=== PATIENT | female | born 2000 | race Hispanic/Latino ===

== ENCOUNTER 2020-03-10 09:59 | Outpatient (CLI) | payer BC, SELFPAY ==
--- NOTE | ~2020-03-10 | US_ITS ---
EXAMINATION: US pelvic complete w TV DATE: 03/10/2020 10:45 INDICATION: Irregular menstruation. Cramping. Comparison:No prior studies for comparison. TECHNIQUE: Multiple transabdominal and endovaginal sonographic images of the pelvis performed. FINDINGS: The uterus measures 7.4 x 6.4 x 4.2 cm. The endometrial complex measures 5.5 mm. Trace flui d in the endometrium. Uterus is retroverted. The right ovary measures 3.2 x 2 x 2.1 cm and the left ovary measures 3.3 x 2.5 x 2.8 cm. There is a 2.7 cm left ovarian cyst. There are small follicles in each ovary. There is no free fluid in the pelvis. There are no abnormal masses seen on either side. IMPRESSION: 1. 2.7 cm left ovarian cyst. Reviewed, dictated and finalized at location A.
== END 2020-03-10 10:00 | disposition home or self-care (01) ==
PROVIDERS: Visit Provider Obstetrics & Gynecology
DX: R10.2 Pelvic and perineal pain (principal); N83.202 Unspecified ovarian cyst, left side
CPT/HCPCS: 76830; 76856

== ENCOUNTER 2024-08-21 17:17 | Inpatient (IN) | payer OTHER, SELFPAY ==
[2024-08-21] VITALS (10 sets, daily range): BP systolic 105–130; BP diastolic 56–76; PULSE 69–82; RESP 14–16; TEMP 36.3–36.7; O2SAT 97–100; BMI 36.0
--- NOTE | ~2024-08-21 | US_ITS ---
EXAMINATION: US venous doppler [facility] DATE: 08/26/2024 14:29 INDICATION: new onset swelling and pain . TECHNIQUE: Grayscale ultrasound images without and with compression and Doppler ultrasound images of the left upper extremity veins were obtained. COMPARISON: None. FINDINGS: The left cephalic vein has mildly dilated and noncompressible. The visualized portions of the left in ternal jugular vein, subclavian vein, axillary vein, brachial veins, basilic vein, radial vein, and u lnar vein are patent. IMPRESSION: Acute venous thrombosis involving the left cephalic vein. Reviewed, dictated and finalized at location K. EROOM ATTENDANT
--- NOTE | ~2024-08-21 | CT_ITS ---
CLINICAL INDICATION: Abdominal pain blood in stool COMPARISON: None TECHNIQUE: Multiple contiguous axial images of the abdomen and pelvis were performed following the ad ministration of with 100 mL Omnipaque-350 intravenous contrast The dose-length product (DLP) was 846.07 mGy-cm. Automated exposure control and iterative reconstruction technique were employed. FINDINGS/OBSERVATIONS: Visualized lower thorax: Left basilar atelectasis. The remainder of the bilateral lung bases are clear. The heart is of normal size, without pericardial effusion. Liver: The liver is enlarged measuring 20 cm in longitudinal dimension. The liver enhances homogeneously and demonstrates diffuse fatty infiltration.. Gallbladder and biliary system: The gallbladder is only minimally distended, and otherwise unremarkable. Pancreas: The pancreas enhances homogeneously without ductal dilatation. Spleen: The spleen enhances homogeneously and is within the upper limits of normal for size measuring 12 cm i n longitudinal dimension. Kidneys: The bilateral kidneys enhance symmetrically without hydronephrosis or renal calculi. Adrenal glands: Unremarkable. Gastrointestinal tract: Mural thickening with edema and surrounding inflammatory changes identified within the entirety of th e colon, findings consistent with a pancolitis. Appendix: The appendix is of normal caliber (axial series, image 129) Vasculature: Unremarkable. Lymph nodes: No pathologically enlarged or morphologically suspicious lymph nodes within the retroperitoneum or at the root of the mesentery. Pelvic structures: The bladder is distended, and otherwise unremarkable. The uterus is retroverted and retroflexed. Body wall and musculoskeletal: Small fat-containing umbilical hernia. No significant degenerative disease within the lower thoracic or lumbosacral spine. IMPRESSION: Findings consistent with a pancolitis, as detailed above. Fatty infiltration of an enlarged liver. Left basilar atelectasis. Reviewed, dictated and finalized at location A. NTORY CLERK
--- NOTE | ~2024-08-21 | XR_ITS ---
Portable chest x-ray Comparison: None Clinical History: Leukocytosis Findings: There is probable bibasilar scarring or atelectasis, less likely pneumonia. Cardiomediast inal silhouette is stable. Bones and soft tissues are unremarkable. Impression: Probable bibasilar scarring or atelectasis, less likely pneumonia. Reviewed, dictated and finalized at [facility]. N SERVICES SUPERVISOR Impression: Probable bibasilar scarring or atelectasis, less likely pneumonia.
[2024-08-21 18:04] LABS: Basophils Percent Auto 0.2 % (0.2-1.2); Eosinophils Absolute Auto 0.1 K/mm3 (0-0.3); Eosinophils Percent Auto 0.3 % (0-4.4); Hematocrit 37.8 % (37.0-47.0); Hemoglobin 12.7 g/dL (12.0-15.0); Immature Granulocyte Absolute 0.09 K/mm3 (0.00-0.031); Immature Granulocyte Percent A 0.5 % (0-0.5); Lymphocytes Absolute Auto 1.82 K/mm3 (0.9-3.2); Lymphocytes Percent Auto 10.9 % (18.3-44.2); Mean Corpuscular HGB Conc 33.6 g/dl (32-36); Mean Corpuscular Hemoglobin 28.3 pg (26-34); Mean Corpuscular Volume 84.4 fl (80-100); Mean Platelet Volume 9.2 fl (7.4-10.4); Monocytes Absolute Auto 0.6 K/mm3 (0.1-0.6); Monocytes Percent Auto 3.8 % (2.6-8.5); Neutrophils Absolute Auto 14.1 K/mm3 (1.3-6.7); Neutrophils Percent Auto 84.3 % (45.5-73.1); Platelet Count Result 316 k/mm3 (150-375); Red Blood Count 4.48 M/mm3 (4.2-5.4); Red Cell Distribution Width 14.1 % (11.5-14.5); White Blood Count 16.7 K/mm3 (4.5-10.0)
[2024-08-21 18:16] LABS: Alanine Aminotransferase 55 U/L (6-35); Albumin Level 4.3 g/dL (3.5-5.1); Alkaline Phosphatase 73 U/L (38-126); Anion Gap 9 mmol/L (4-12); Aspartate Amino Transferase 53 U/L (14-36); Bilirubin,Total 0.5 mg/dL (0.2-1.3); Blood Urea Nitrogen 5 mg/dL (7-17); Calcium 8.7 mg/dL (8.4-10.2); Carbon Dioxide 24 mmol/L (22-30); Chloride 102 mmol/L (98-107); Estimated CRCL calculation 124 ml/min; Estimated Glomerular Filt Rate > 60; Glucose 130 mg/dL (65-110); Lipase 46 U/L (23-300); Potassium 3.8 mmol/L (3.4-5.0); Sodium 135 mmol/L (137-145)
[2024-08-21 18:29] LABS: BEDSIDEPREGUCG Negative (Negative)
--- NOTE | 2024-08-21 18:29 | ED_ITS ---
HPI - Abdominal Pain General Chief Complaint: Abdominal Pain Stated Complaint: abd pain Time Seen by Provider: 08/21/24 17:38 History of Present Illness HPI narrative: 24-year-old female with history of NAFLD, anxiety, depression and gastroparesis presents emergency department family at bedside for periumbilical abdominal pain for 2 days and 3 episodes of bloody diarrhea today. Patient states she has been using a heating pad and taking ibuprofen with some relief in her abdominal pain. States she has never had symptoms like this before. Denies history of hemorrhoids. Reports nausea but denies vomiting or fever. LMP 1 week ago and normal. No prior abdominal surgeries. Related Data Home Medications Medication Instructions Recorded Confirmed ondansetron HCl 4 mg tablet 4 mg PO Q8H 01/31/20 Allergies Allergy/AdvReac Type Severity Reaction Status Date / Time No Known Allergies Allergy Verified 08/21/24 17:21 Review of Systems Review of Systems: All systems reviewed & are unremarkable except as noted in HPI and below PMFSH Past Medical History Medical History (Updated 08/21/24 @ 22:29 by Mitzi Dickerson PA-C) Anxiety Depression Gastroparesis Urinary frequency Vaginal discharge Surgical History Surgical History History of tonsillectomy Social History Social History Smoking status: Former smoker Tobacco type: e-cigarettes/vaping Smoking end date: 10/16/19 Alcohol intake: never Substance use: current Substance use type: marijuana Exam Narrative: GENERAL: Well-appearing, well-nourished, and in no acute distress. HEAD: Normocephalic, atraumatic. EYES: EOMI. ENT: Nares clear, no rhinorrhea or epistaxis. Mucous membranes moist. NECK: Supple. CHEST: Clear to auscultation. No respiratory distress. HEART: Regular rate and rhythm. No murmur heard. Normal peripheral pulses. ABDOMEN: Normoactive bowel sounds, abdomen soft. Tenderness to the periumbilic al region to palpation. No rebound, guarding or rigidity. No CVA tenderness. Rectal exam chaperoned by Jeannette hamm: No external hemorrhoids or anal fissures. Bright red blood is noted on glove after rectal exam with no palpable internal hemorrhoids. Hemoccult is positive. EXTREMITIES: Normal range of motion. No edema. SKIN: Warm, dry, no rash. NEURO: No focal deficits. Alert and oriented x3 Course Vital Signs Vital signs: Vital Signs Temperature 98.1 F 08/21/24 17:19 Pulse Rate 82 08/21/24 17:19 Respiratory Rate 16 08/21/24 17:19 Blood Pressure 130/73 08/21/24 17:19 Pulse Oximetry 100 08/21/24 17:19 Oxygen Delivery Room Air 08/21/24 17:19 Temperature 98.1 F 08/21/24 17:19 Pulse Rate 72 08/21/24 21:01 Respiratory Rate 16 08/21/24 19:01 Blood Pressure 128/72 08/21/24 21:01 Pulse Oximetry 100 08/21/24 21:01 Oxygen Delivery Room Air 08/21/24 17:19 MDM - Abdominal Pain MDM Narrative Medical decision making narrative: 24-year-old female presents emergency department for periumbilical abdominal pain for 2 days and episode of bloody diarrhea today. Triage vitals are stable. Exam significant for the above. Notably tenderness to the periumbilical region of the abdomen with bright red blood noticed on digital rectal exam. CBC reveals leukocytosis of 16.7, no bandemia. Chemistries show chronic elevations in AST and ALT. Lactic acid mildly elevated 2.2, fluids ongoing. UA is unremarkable. is negative. CT abdomen pelvis shows pancolitis consistent with patient's presentation. Stool cultures and C diff testing pending. Patient updated on workup. She is and persistent pains was given a dose of IV morphine. She does know that she was recently exposed to C diff at her work (she works at [employer] Denies recent surgeries or hospitalizations, denies antibiotic use or travel. Suspect C diff is the source of her symptoms. Shared decision making regarding disposition. She notes that she did have another episode of bloody stools in the ED. She is requesting to stay in the ED for pain control and IV fluids. Discussed with Dr. Davenport who agrees to admission. Pt started on Dificid pending C. diff results. Lab Data 08/21/24 17:55 08/21/24 17:55 Labs: Lab Results 11/11/24 11/11/24 11/11/24 Range/Units 17:55 18:25 18:27 WBC 16.7 H (4.5-10.0) K/mm3 RBC 4.48 (4.2-5.4) M/mm3 Hgb 12.7 (12.0-15.0) g/dL Hct 37.8 (37.0-47.0) % MCV 84.4 (80-100) fl MCH 28.3 (26-34) pg MCHC 33.6 (32-36) g/dl RDW 14.1 (11.5-14.5) % Plt Count 316 (150-375) k/mm3 MPV 9.2 (7.4-10.4) fl Immature Gran % (Auto) 0.5 (0-0.5) % Neut % (Auto) 84.3 H (45.5-73.1) % Lymph % (Auto) 10.9 L (18.3-44.2) % [place] % (Auto) 3.8 (2.6-8.5) % Eos % (Auto) 0.3 (0-4.4) % Baso % (Auto) 0.2 (0.2-1.2) % Lymph # (Auto) 1.82 (0.9-3.2) K/mm3 [place] # (Auto) 0.6 (0.1-0.6) K/mm3 Eos # (Auto) 0.1 (0-0.3) K/mm3 Baso # (Auto) 0.0 (0.0-0.1) K/mm3 Abs Immat Gran (auto) 0.09 H (0.00-0.031) K/mm3 Absolute Neuts (auto) 14.1 H (1.3-6.7) K/mm3 Absolute Nucleated RBC 0.000 (0.0-0.012) K/mm3 Nucleated RBC % 0.0 (0.0-0.2) % Sodium 135 L (137-145) mmol/L Potassium 3.8 (3.4-5.0) mmol/L Chloride 102 (98-107) mmol/L Carbon Dioxide 24 (22-30) mmol/L Anion Gap 9 (4-12) mmol/L BUN 5 L (7-17) mg/dL Creatinine 0.60 L (0.7-1.0) mg/dL Estim Creat Clear Calc 124 ml/min Estimated GFR > 60 (59 - ) Glucose 130 H (65-110) mg/dL Lactic Acid (0.7-2.0) mmol/L Calcium 8.7 (8.4-10.2) mg/dL Total Bilirubin 0.5 (0.2-1.3) mg/dL AST 53 H (14-36) U/L ALT 55 H (6-35) U/L Alkaline Phosphatase 73 (38-126) U/L Total Protein 8.0 (6.3-8.2) g/dL Albumin 4.3 (3.5-5.1) g/dL Lipase 46 (23-300) U/L Urine Color Yellow (Yellow) Urine Appearance Clear (Clear) Urine pH 6.0 (5.0-9.0) Ur Specific [place] 1.018 (1.001-1.035) Urine Protein Negative (Negative) mg/dL Urine Glucose (UA) Negative (Negative) mg/dL Urine Ketones Negative (Negative) mg/dL Ur Blood (Man) Negative (Negative) Urine Nitrate Negative (Negative) Urine Bilirubin Negative (Negative) Urine Urobilinogen 0.2 (<2.0) mg/dL Leukocyte Esterase Rfl Negative (Negative) BENIGNO/UL POC Urine HCG, Qual Negative (Negative) 08/21/24 Range/Units 18:46 WBC (4.5-10.0) K/mm3 RBC (4.2-5.4) M/mm3 Hgb (12.0-15.0) g/dL Hct (37.0-47.0) % MCV (80-100) fl MCH (26-34) pg MCHC (32-36) g/dl RDW (11.5-14.5) % Plt Count (150-375) k/mm3 MPV (7.4-10.4) fl Immature Gran % (Auto) (0-0.5) % Neut % (Auto) (45.5-73.1) % Lymph % (Auto) (18.3-44.2) % [place] % (Auto) (2.6-8.5) % Eos % (Auto) (0-4.4) % Baso % (Auto) (0.2-1.2) % Lymph # (Auto) (0.9-3.2) K/mm3 [place] # (Auto) (0.1-0.6) K/mm3 Eos # (Auto) (0-0.3) K/mm3 Baso # (Auto) (0.0-0.1) K/mm3 Abs Immat Gran (auto) (0.00-0.031) K/mm3 Absolute Neuts (auto) (1.3-6.7) K/mm3 Absolute Nucleated RBC (0.0-0.012) K/mm3 Nucleated RBC % (0.0-0.2) % Sodium (137-145) mmol/L Potassium (3.4-5.0) mmol/L Chloride (98-107) mmol/L Carbon Dioxide (22-30) mmol/L Anion Gap (4-12) mmol/L BUN (7-17) mg/dL Creatinine (0.7-1.0) mg/dL Estim Creat Clear Calc ml/min Estimated GFR (59 - ) Glucose (65-110) mg/dL Lactic Acid 2.2 H (0.7-2.0) mmol/L Calcium (8.4-10.2) mg/dL Total Bilirubin (0.2-1.3) mg/dL AST (14-36) U/L ALT (6-35) U/L Alkaline Phosphatase (38-126) U/L Total Protein (6.3-8.2) g/dL Albumin (3.5-5.1) g/dL Lipase (23-300) U/L Urine Color (Yellow) Urine Appearance (Clear) Urine pH (5.0-9.0) Ur Specific [place] (1.001-1.035) Urine Protein (Negative) mg/dL Urine Glucose (UA) (Negative) mg/dL Urine Ketones (Negative) mg/dL Ur Blood (Man) (Negative) Urine Nitrate (Negative) Urine Bilirubin (Negative) Urine Urobilinogen (<2.0) mg/dL Leukocyte Esterase Rfl (Negative) BENIGNO/UL POC Urine HCG, Qual (Negative) Imaging Data Radiologist's impression: ITS Impressions Abdomen/Pelvis CT 08/21/24 21:30 IMPRESSION: Findings consistent with a pancolitis, as detailed above. Fatty infiltration of an enlarged liver. Left basilar atelectasis. Discharge Plan Discharge Clinical Impression: Pancolitis, Hematochezia Patient Disposition: Still a Patient Condition: Stable Instructions: Antibiotic Form Prescriptions: No Action ondansetron HCl 4 mg tablet 4 mg PO Q8H cyclobenzaprine 10 mg tablet 10 mg PO Q12H PRN (Reason: muscle spasm) Qty: 10 0RF metronidazole [Flagyl] 500 mg tablet 500 mg PO Q12H Qty: 14 0RF Follow-up/Referrals: UNKNOWN,DOCTOR [Primary Care Provider] -
[2024-08-21 18:31] LABS: Add Urine Microscopic? NO; Appearance Urine Clear (Clear); Bilirubin Urine Negative (Negative); Blood Urine Negative (Negative); Color Urine Yellow (Yellow); Glucose Urine UA Negative (Negative); Ketones Urine Negative (Negative); Leukocyte Esterase Ur Negative LEU/UL (Negative); Nitrate Urine Negative (Negative); Protein Urine Negative (Negative); Specific Grav Ur 1.018 (1.001-1.035); Urobilinogen Urine 0.2 mg/dL (<2.0)
[2024-08-21] MEDS: SODIUM CHLORIDE 0.9% IV 1,000 ML 999 ML IV CONT ×2 (18:48→22:44)
[2024-08-21 19:13] LABS: Lactic Acid Reflex 2.2 mmol/L (0.7-2.0)
[2024-08-21 21:52] LABS: Reflex Lactic Acid Yes or No Add Lactic
[2024-08-21] MEDS: MORPHINE SULFATE (*CRX) 4 MG/ML INJ IV PUSH (22:12)
[2024-08-21 22:35] LABS: Lactic Acid 1.4 mmol/L (0.7-2.0)
[2024-08-21 22:47] LABS: Hematocrit 34.7 % (37.0-47.0)
[2024-08-21] MEDS: FIDAXOMICIN 200 MG TABLET PO (22:48)
--- NOTE | 2024-08-21 23:30 | ADMGEN ---
This patient, Aida Butts, was admitted to [facility] Surg Room 331-02. Patient/family oriented to hospital policies and general routines including ID bracelet, bed and alarms, visiting hours, pain management, procedures, bathroom and other care routines, personal items, smoking policy, room service/diet, and visiting hours. Information on how to activate the Rapid Response Team has been discussed. Patient/Family are encouraged to report perceived risks to care and to ask questions if they do not understand what they are told or what they should do.
--- NOTE | 2024-08-22 00:07 | P.HP_ITS ---
H&P: HPI History of Present Illness Date/Time: 08/22/24 00:07 Chief Complaint: Bloody diarrhea for 2 days Narrative: 24-year-old female with past medical history of obesity, Rios, anxiety, depression and gastroparesis who presented to the ER with 2 days of abdominal pain and bloody stools. She reports that she has had 3 days of abdominal pain and diarrhea. She initially thought her symptoms were due to her gastroparesis. Her usual gastroparesis symptoms usually involve crampy abdominal pain, nausea followed by looser her mushy stools. She was diagnosed with gastroparesis in 2019 when she had an EGD that demonstrated retained gastric contents when she had been fasting for close to 24 hours. She reports that she has never had a colonoscopy. She is followed at [facility] by Gastroenterology for her RIOS and gastroparesis. She reported that her symptoms were accompanied by generalized body aches. She has been afebrile. She went from having mushy loose stools with crampy abdominal pain is moderate to severe in intensity and then transition to having frankly watery/mucousy stools. She reports that she was so weak that her fiance had to help her out of bed and she was having associated lightheaded symptoms. She was having some nausea and did have a couple of episodes of emesis. She denies any hematemesis or coffee-ground emesis. She went to [facility] ER was told she likely had a viral illness without having any evaluation. When she was [place] to leave sloughed ER she did notice some blood in her stool so she left that ER and decided to come to our facility. She denies any bowel incontinence. At our facility labs demonstrated mild leukocytosis, lactic acidosis, chronic stable transaminitis and a CT scan was performed which demonstrated amin colitis. The patient does note that she did the intake for patient had chestnut about 4 weeks ago that was found later to have C diff colitis. She denies any recent antibiotic exposures, travel, undercooked meat or contaminated water exposure. Patient was able to produce a stool specimen that was tested for C diff and was found to be negative. Review of Systems Review of Systems: 12 systems were reviewed with pertinent positives and negatives per HPI. Except as documented in the HPI, all other systems were reviewed and are negative. [facility] Past Medical History Medical History (Updated 08/22/24 @ 03:34 by Priscila Davenport DO) Anxiety Depression Gastroparesis Nonalcoholic steatohepatitis (RIOS) Chronic transaminitis; [facility] Urinary frequency Vaginal discharge Surgical History Surgical History History of tonsillectomy Family History Family History (Updated 08/22/24 @ 03:33 by Priscila Davenport DO) Other Adopted Unknown family medical history Social History Social History (Updated 08/22/24 @ 03:36 by Priscila Davenport DO) Social History: She lives at home with her fiance and mother. She works at [employer]. She denies any alcohol use. She used to smoke marijuana frequently but stopped in 2022. Code status: Full code Surrogate decision maker: Mother Smoking status: Former smoker Tobacco type: e-cigarettes/vaping Smoking end date: 10/16/19 Alcohol intake: never Substance use: former Substance use type: marijuana Do You Feel Safe in your Home?: Yes Lack of Transportation: No Lack of Food: Never True Current Housing: I Have Housing Concerned About Future Housing: No Difficulty Paying Gas/Electric Bills: No Difficulty Paying for Meds: No Currently Unemployed: No Education: Bachelor's Degree Difficulty w/ Childcare or Family Care: No Spiritual care concerns: No Meds Home Medications and Allergies Home Medications Medication Instructions Recorded Confirmed Type cholecalciferol (vitamin D3) 50 50 mcg PO DAILY 08/21/24 08/21/24 History mcg (2,000 unit) capsule (Vitamin D3) vitamin K2 45 mcg capsule 45 mcg PO DAILY 08/21/24 08/21/24 History Allergies Allergy/AdvReac Type Severity Reaction Status Date / Time No Known Allergies Allergy Verified 08/21/24 17:21 Vital Signs Vital Signs - 24 hr 08/21/24 17:19 08/21/24 18:25 08/21/24 18:31 Temperature 98.1 F Pulse Rate 82 Respiratory Rate 16 Blood Pressure 130/73 120/75 105/64 Pulse Oximetry 100 98 Oxygen Delivery Room Air 08/21/24 19:01 08/21/24 19:41 08/21/24 20:34 Temperature Pulse Rate 69 Respiratory Rate 16 Blood Pressure 119/76 123/75 111/62 Pulse Oximetry 99 99 98 Oxygen Delivery 08/21/24 21:01 08/21/24 23:00 08/21/24 23:09 Temperature Pulse Rate 72 81 81 Respiratory Rate 14 14 Blood Pressure 128/72 109/63 109/63 Pulse Oximetry 100 99 99 Oxygen Delivery Exam Narrative: Weight 89.4 kg BMI 36 Const: Other: Obese, no acute distress, appears stated age HENMT: Other: Mucous membranes are tacky, no oral pharyngeal erythema Eyes: Other: Pupils are equal and reactive, no scleral icterus Neck: Other: Large neck circumference, supple Resp: Other: Clear to auscultation bilaterally anterior trujillo, no increased work of br eathing Cardio: Other: Regular rate, regular rhythm, 2+ bilateral radial pedal pulses GI: Other: Normoactive bowel sounds, soft, no organomegaly Skin: Other: No jaundice, no pallor Neuro: Other: Alert oriented, speech is clear, no facial asymmetry, no localizing neurologic deficits noted during the course of conversation Extrem: Other: No clubbing, cyanosis or edema Psych: Other: Appropriate mood and affect, pleasant and cooperative, judgment and insight intact H&P: Results Labs Labs: Laboratory Tests 08/21/24 22:43 08/21/24 17:55 08/21/24 08/21/24 08/21/24 17:55 18:25 18:27 WBC 16.7 H RBC 4.48 Hgb 12.7 Hct 37.8 MCV 84.4 MCH 28.3 MCHC 33.6 RDW 14.1 Plt Count 316 MPV 9.2 Immature Gran % (Auto) 0.5 Neut % (Auto) 84.3 H Lymph % (Auto) 10.9 L Bartholomew % (Auto) 3.8 Eos % (Auto) 0.3 Baso % (Auto) 0.2 Lymph # (Auto) 1.82 Bartholomew # (Auto) 0.6 Eos # (Auto) 0.1 Baso # (Auto) 0.0 Abs Immat Gran (auto) 0.09 H Absolute Neuts (auto) 14.1 H Absolute Nucleated RBC 0.000 Nucleated RBC % 0.0 Sodium 135 L Potassium 3.8 Chloride 102 Carbon Dioxide 24 Anion Gap 9 BUN 5 L Creatinine 0.60 L Estim Creat Clear Calc 124 Estimated GFR > 60 Glucose 130 H Lactic Acid Calcium 8.7 Total Bilirubin 0.5 AST 53 H ALT 55 H Alkaline Phosphatase 73 Total Protein 8.0 Albumin 4.3 Lipase 46 Urine Color Yellow Urine Appearance Clear Urine pH 6.0 Ur Specific [place] 1.018 Urine Protein Negative Urine Glucose (UA) Negative Urine Ketones Negative Ur Blood (Man) Negative Urine Nitrate Negative Urine Bilirubin Negative Urine Urobilinogen 0.2 Leukocyte Esterase Rfl Negative POC Urine HCG, Qual Negative C. difficile (PCR) 08/21/24 08/21/24 08/21/24 18:46 22:18 22:43 WBC RBC Hgb 12.0 Hct 34.7 L MCV MCH MCHC RDW Plt Count MPV Immature Gran % (Auto) Neut % (Auto) Lymph % (Auto) Bartholomew % (Auto) Eos % (Auto) Baso % (Auto) Lymph # (Auto) Bartholomew # (Auto) Eos # (Auto) Baso # (Auto) Abs Immat Gran (auto) Absolute Neuts (auto) Absolute Nucleated RBC Nucleated RBC % Sodium Potassium Chloride Carbon Dioxide Anion Gap BUN Creatinine Estim Creat Clear Calc Estimated GFR Glucose Lactic Acid 2.2 H 1.4 Calcium Total Bilirubin AST ALT Alkaline Phosphatase Total Protein Albumin Lipase Urine Color Urine Appearance Urine pH Ur Specific [place] Urine Protein Urine Glucose (UA) Urine Ketones Ur Blood (Man) Urine Nitrate Urine Bilirubin Urine Urobilinogen Leukocyte Esterase Rfl POC Urine HCG, Qual C. difficile (PCR) 08/22/24 01:09 WBC RBC Hgb Hct MCV MCH MCHC RDW Plt Count MPV Immature Gran % (Auto) Neut % (Auto) Lymph % (Auto) Bartholomew % (Auto) Eos % (Auto) Baso % (Auto) Lymph # (Auto) Bartholomew # (Auto) Eos # (Auto) Baso # (Auto) Abs Immat Gran (auto) Absolute Neuts (auto) Absolute Nucleated RBC Nucleated RBC % Sodium Potassium Chloride Carbon Dioxide Anion Gap BUN Creatinine Estim Creat Clear Calc Estimated GFR Glucose Lactic Acid Calcium Total Bilirubin AST ALT Alkaline Phosphatase Total Protein Albumin Lipase Urine Color Urine Appearance Urine pH Ur Specific [place] Urine Protein Urine Glucose (UA) Urine Ketones Ur Blood (Man) Urine Nitrate Urine Bilirubin Urine Urobilinogen Leukocyte Esterase Rfl POC Urine HCG, Qual C. difficile (PCR) Negative Impressions Abdomen/Pelvis CT 08/21/24 21:30 IMPRESSION: Findings consistent with a pancolitis, as detailed above. Fatty infiltration of an enlarged liver. Left basilar atelectasis. Assessment and Plan Assessment and plan (1) Pancolitis: Code(s): K51.00 - Ulcerative (chronic) pancolitis without complications Status: Acute (2) Hematochezia: Code(s): K92.1 - Melena Status: Acute (3) Acute hyponatremia: Code(s): E87.1 - Hypo-osmolality and hyponatremia Status: Acute Plan Patient has amin colitis. Presumed infectious in origin. Initial C diff PCR negative. However patient does have recent C diff exposure so still slight possibility of a false-negative result? Stool cultures are pending. Will change patient's antibiotic coverage to Rocephin and Flagyl. I am wondering if patient may have previously undiagnosed inflammatory bowel disease? Possible patient could have underlying Crohn's although presentation would be unusual given acute onset of symptoms. Will place patient on clear liquid diet and advance as tolerated to regular diet. Patient is having hematochezia but hemoglobin is stable despite fluid boluses. Will repeat CBC and CMP in a.m.. P.r.n. pain medications and nausea medications have been ordered. Patient did have some mild lactic acidosis which has resolved after fluid administration. She also has some mild hyponatremia likely due to hypovolemia. Patient also has chronic transaminitis related to her history of RIOS. Will repeat CMP in a.m.. Patient has been admitted as observation status. Quality VTE Prophylaxis VTE prophylaxis: mechanical ordered (SCDs) Hospitalist MIPS Advance Care Plan I have confirmed that the patient's Advanced Care Plan is present, code status is documented, or surrogate decision maker is listed in patient medical record.: Yes Medication Reconciliation I have utilized all available resources to obtain, update and review the patients current medications (includes all prescriptions, OTC, herbals, cannabis, and nutritional supplements).: Yes
[2024-08-22] MEDS: oxyCODONE HCL (*CRX) 5 MG TAB IR PO ×3 (00:31→20:03)
[2024-08-22 02:03] LABS: Toxigenic C. Diff NEGATIVE (NEGATIVE)
[2024-08-22] MEDS: metroNIDAZOLE 500 MG/ISO 100ML 500 MG/100 ML BAG 100 MG IVPB ×3 (05:09→21:36)
[2024-08-22 05:10] VITALS: BP 109/67; PULSE 80; RESP 20; TEMP 36.2; O2SAT 98
[2024-08-22 06:47] LABS: Hematocrit 32.8 % (37.0-47.0); Hemoglobin 11.3 g/dL (12.0-15.0); Mean Corpuscular HGB Conc 34.5 g/dl (32-36); Mean Corpuscular Volume 84.1 fl (80-100); Mean Platelet Volume 9.5 fl (7.4-10.4); Platelet Count Result 261 k/mm3 (150-375); Red Cell Distribution Width 14.1 % (11.5-14.5); White Blood Count 14.2 K/mm3 (4.5-10.0)
[2024-08-22 06:55] LABS: Alanine Aminotransferase 47 U/L (6-35); Albumin Level 3.5 g/dL (3.5-5.1); Alkaline Phosphatase 67 U/L (38-126); Anion Gap 8 mmol/L (4-12); Aspartate Amino Transferase 33 U/L (14-36); Bilirubin,Total 0.4 mg/dL (0.2-1.3); Blood Urea Nitrogen 3 mg/dL (7-17); Calcium 7.7 mg/dL (8.4-10.2); Carbon Dioxide 25 mmol/L (22-30); Chloride 103 mmol/L (98-107); Estimated CRCL calculation 150 ml/min; Estimated Glomerular Filt Rate > 60; Glucose 114 mg/dL (65-110); Potassium 3.4 mmol/L (3.4-5.0); Sodium 136 mmol/L (137-145)
[2024-08-22 08:06] VITALS: O2SAT 99
--- NOTE | 2024-08-22 08:52 | P.CONGI_ITS ---
I, Saul Garcia MD, have provided a substantive portion of the care of this patient and discussed the patient with my Nurse Practitioner. I have reviewed any new relevant radiographic and laboratory results including medications. I agree with her documentation as noted below.?I personally performed the medical decision making and much of the history and exam for this encounter. briefly she has gastroparesis and MASH seeing GI at [facility]. Here with new onset of severe abdominal pain with blood in stools, wbc was elevated, CT scan showed pancolitis, no sick contacts. Started on abx, will need colonoscopy probably after resolution of inflammation in few more weeks. Supportive care Assessment and Plan Assessment and plan (1) Abdominal pain: Qualifiers: Abdominal location: periumbilical Qualified Code(s): R10.33 - Periumbilical pain Code(s): R10.9 - Unspecified abdominal pain Status: Acute (2) Abnormal digestive system diagnostic imaging: Code(s): R93.3 - Abnormal findings on diagnostic imaging of other parts of digestive tract Status: Acute (3) Pancolitis: Code(s): K51.00 - Ulcerative (chronic) pancolitis without complications Status: Acute (4) Hematochezia: Code(s): K92.1 - Melena Status: Acute (5) Diarrhea: Qualifiers: Diarrhea type: presumed infectious Qualified Code(s): R19.7 - Diarrhea, unspecified Code(s): R19.7 - Diarrhea, unspecified Status: Acute (6) ABLA (acute blood loss anemia): Code(s): D62 - Acute posthemorrhagic anemia Status: Acute (7) Hepatic steatosis: Code(s): K76.0 - Fatty (change of) liver, not elsewhere classified Status: Acute (8) Gastroparesis: Code(s): K31.84 - Gastroparesis Status: Acute Plan 1. Umbilical abdominal pain /hematochezia/abnormal imaging digestive- pancolitis/diarrhea/leukocytosis: Patient has never had a colonoscopy. Family medical Hx unknown as patient is adopted. CT on admission showed mural thickening with edema and surrounding inflammatory changes identified within the entire colon consistent with pancolitis. WBCs on admission 17 and today 14. Acute onset of symptoms starting on Wednesday with umbilical abdominal pain and nausea. Yesterday around 2 pm she started having diarrhea and moderate amount of painless rectal bleeding. BM this morning patient states was mostly bright red blood with minimal stool. Denies any Hx of known hemorrhoids. Denies prior episodes of rectal bleeding. C-Diff negative. DDX: acute infectious/ inflammatory process versus diverticular bleed versus an IBD versus hemorrhoids versus AVM less likely neoplasm. 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 ABLA: On admission HGB 13, HCT 38, MCV 84, platelets 316. Labs today show HGB 11, HCT 33, MCV 84, platelets 261. Patient still having bright red blood with BM's. * Primary care team to continue monitoring and transfuse as needed to keep Hgb >7 * If H/H does not stabilize may consider more urgent colonoscopy to identify blood source 3. 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 Last EGD performed in 2019 at which time she was diagnosed with gastroparesis secondary to increased gastric residual. Patient states that she has not been on Reglan in the past but uses Zofran on as-needed basis with minimal symptom improvement. CT on admission showed hepatomegaly and fatty liver. LFTs were normal except mildly elevated ALT at 47. * If patient becomes symptomatic, will consider starting Reglan while inpatient * Patient to continue care at [facility] Thank you very much for allowing me to share in the care of the very nice patient. This report may have been done utilizing a voice recognition system. Attempts have been made to correct errors. However, there may be uncorrected grammatical, spelling, and recognition errors present. GI Consult Note Consult date/time: 08/22/24 08:52 Reason for consult: Pancolitis and bloody stools HPI: This is a pleasant 24 year old female with a past medical surgical history of anxiety, depression, gastroparesis, GRIFFIN and tonsillectomy she presented to the ER room 08/21/2024 with complaints of abdominal pain and bloody stools. GI consulted for pancolitis and bloody stools. Patient states that she had an appointment at [facility] yesterday and was told that her symptoms were likely related to a viral illness. Following her visit at [facility] she started having rectal bleeding and came to [place] for evaluation. Patient states that her abdominal pain started on Wednesday, pain is located around the umbilicus, sharp in character and constant. Yesterday around 2 pm she started having liquid stool and a moderate amount of bright red blood per rectum. She had a small BM this morning that she states was mostly blood. she admits to a decreased appetite since Wednesday. Prior to her acute onset of symptoms on Wednesday she was having 1-2 formed non urgent bowel movements per day but is now having near constant small liquid stools. She has occasional nausea without vomiting. She denies abdominal bloating, odynophagia, dysphagia, reflux, regurgitation, early satiety, unexplained weight loss, constipation, or melena. Patient was recently on antibiotics following wisdom tooth extraction about 1 month ago. 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 Patient favors but denies any alcohol, cigarette, or marijuana use. Family medical history unknown as patient is adopted. ENDOSCOPY HISTORY: EGD: In 2019 at [facility] at which time she was diagnosed with gas troparesis due to increase gastric residual COLONOSCOPY: Patient has never had a colonoscopy LABS AND STOOL STUDIES: Labs 08/22/2024 showed sodium 136, potassium 3.4, BUN 3, creatinine 0.50, GFR > 60. WBC is 14, HGB 11, HCT 33, MCV 84, platelets 261. Total bilirubin 0.4, AST 33, ALT 47, alkaline phosphatase 67, albumin 3.5, lactic acid 1.4, calcium 7.7. C diff stool study was negative IMAGING: CT abd/pelvis w/contrast 08/21/2024 Findings consistent with a pancolitis. Mural thickening with edema and surrounding inflammatory changes identified within the entirety of the colon, findings consistent with a pancolitis. Fatty infiltration of an enlarged liver. Left basilar atelectasis. Review of Systems Constitutional: Constitutional: Reports as per HPI ENT: Reports as per HPI Cardiovascular: Cardiovascular: Reports as per HPI, Denies chest pain and Denies dyspnea Respiratory: Respiratory: Denies cough, Denies hemoptysis and Denies dyspnea Gastrointestinal: Gastrointestinal: Reports as per HPI and Denies melena Musculoskeletal: Musculoskeletal: Reports as per HPI Integumentary/Breasts: Skin/Breast: Reports as per HPI Psychiatric: Psychiatric: Reports as per HPI Endocrine: Endocrine: Reports no additional endocrine complaints Hematologic/Lymphatic: Hematologic/Lymphatic: Reports no additional hematologic/lymphatic complaints [facility] Past Medical History Medical History (Updated 08/22/24 @ 09:18 by Luz Chapa APRN) Anxiety Depression Gastroparesis Nonalcoholic steatohepatitis (GRIFFIN) Chronic transaminitis; Gastroenterology at [facility] Urinary frequency Vaginal discharge Surgical History Surgical History History of tonsillectomy Family History Family History (Updated 08/22/24 @ 03:33 by Priscila Davenport DO) Other Adopted Unknown family medical history Social History Social History (Updated 08/22/24 @ 03:36 by Priscila Davenport DO) Social History: She lives at home with her fiance and mother. She works at [employer]. She denies any alcohol use. She used to smoke marijuana frequently but stopped in 2022. Code status: Full code Surrogate decision maker: Mother Smoking status: Former smoker Tobacco type: e-cigarettes/vaping Smoking end date: 10/16/19 Alcohol intake: never Substance use: former Substance use type: marijuana Do You Feel Safe in your Home?: Yes Lack of Transportation: No Lack of Food: Never True Current Housing: I Have Housing Concerned About Future Housing: No Difficulty Paying Gas/Electric Bills: No Difficulty Paying for Meds: No Currently Unemployed: No Education: Bachelor's Degree Difficulty w/ Childcare or Family Care: No Spiritual care concerns: No Meds Home Medications and Allergies Home Medications Medication Instructions Recorded Confirmed Type cholecalciferol (vitamin D3) 50 50 mcg PO DAILY 08/21/24 08/21/24 History mcg (2,000 unit) capsule (Vitamin D3) vitamin K2 45 mcg capsule 45 mcg PO DAILY 08/21/24 08/21/24 History Allergies Allergy/AdvReac Type Severity Reaction Status Date / Time No Known Allergies Allergy Verified 08/21/24 17:21 Vital Signs Vital Signs - 24 hr 08/21/24 17:19 08/21/24 18:25 08/21/24 18:31 Temperature 98.1 F Pulse Rate 82 Respiratory Rate 16 Blood Pressure 130/73 120/75 105/64 Pulse Oximetry 100 98 Oxygen Delivery Room Air Fraction of Inspired Oxygen 08/21/24 19:01 08/21/24 19:41 08/21/24 20:34 Temperature Pulse Rate 69 Respiratory Rate 16 Blood Pressure 119/76 123/75 111/62 Pulse Oximetry 99 99 98 Oxygen Delivery Fraction of Inspired Oxygen 08/21/24 21:01 08/21/24 23:00 08/21/24 23:15 Temperature 97.4 F L Pulse Rate 72 81 73 Respiratory Rate 14 16 Blood Pressure 128/72 109/63 108/56 L Pulse Oximetry 100 99 97 Oxygen Delivery Fraction of Inspired Oxygen 08/22/24 05:10 08/22/24 08:06 08/21/24 23:09 Temperature 97.1 F L Pulse Rate 80 81 Respiratory Rate 20 14 Blood Pressure 109/67 109/63 Pulse Oximetry 98 99 99 Oxygen Delivery Room Air Fraction of Inspired Oxygen 21 Exam Const: General: cooperative, healthy appearing, comfortable, no acute distress, well developed and uncomfortable Orientation/consciousness: oriented to person, oriented to place, oriented to time and patient oriented x3 HENMT: Head: normal to inspection, normocephalic and atraumatic Mouth: Yes Normal oral and palatal mucosa present and Yes moist mucous membranes Eyes: General: appearance normal, both eyes and all related structures Conjunctivae: conjunctivae normal Sclera: sclerae normal Pupils: Equal, round and reactive pupils present Neck: Neck: normal visual inspection Chest: Chest palpation & inspection: normal inspection of the chest Resp: Effort & Inspection: normal respiratory effort and able to speak in complete sentences Auscultation: clear to auscultation bilaterally Cardio: Jugular venous distension: no JVD Rate: regular rate Rhythm: regular rhythm Heart sounds: S1 normal heart sound present and S2 normal heart sound present GI: Inspection: normal to inspection GI Palp: Yes Soft to palpation, No Firmness to palpation present (GI), Yes Tenderness to palpation present (GI), No Guarding due to palpation present (GI) and Yes No hepatosplenomegaly present Auscultation: normal bowel sounds Rectal Exam: deferred Skin: General skin exam: normal color and no rashes or lesions noted Neuro: General: oriented to person, oriented to place, oriented to time and patient oriented x3 Cranial nerves: Yes Equal, round and reactive pupils present Speech: normal speech Extrem: General: normal to inspection and no clubbing, cyanosis or edema Psych: Appearance: grossly normal and well kempt Affect: normal affect Results Labs 08/22/24 05:57 08/22/24 05:57 Labs: Short CBC 08/21/24 08/21/24 08/22/24 Range/Units 17:55 22:43 05:57 WBC 16.7 H 14.2 H (4.5-10.0) K/mm3 Hgb 12.7 12.0 11.3 L (12.0-15.0) g/dL Hct 37.8 34.7 L 32.8 L (37.0-47.0) % Plt Count 316 261 (150-375) k/mm3 BMP 08/21/24 08/22/24 17:55 05:57 Sodium 135 L 136 L Potassium 3.8 3.4 Chloride 102 103 Carbon Dioxide 24 25 BUN 5 L 3 L Creatinine 0.60 L 0.50 L Glucose 130 H 114 H Calcium 8.7 7.7 L Liver Function 08/21/24 08/22/24 Range/Units 17:55 05:57 Total Bilirubin 0.5 0.4 (0.2-1.3) mg/dL AST 53 H 33 (14-36) U/L ALT 55 H 47 H (6-35) U/L Alkaline Phosphatase 73 67 (38-126) U/L Albumin 4.3 3.5 (3.5-5.1) g/dL Urine 08/21/24 Range/Units 18:25 Urine Color Yellow (Yellow) Urine Appearance Clear (Clear) Urine pH 6.0 (5.0-9.0) Ur Specific [place] 1.018 (1.001-1.035) Urine Protein Negative (Negative) mg/dL Urine Glucose (UA) Negative (Negative) mg/dL
[2024-08-22] MEDS: oxyCODONE HCL (*CRX) 2.5 MG TAB IR PO (09:33)
[2024-08-22] MEDS: CHOLECALCIFEROL 1,000 UNITS TABLET 2000 UNITS PO (09:34)
--- NOTE | 2024-08-22 10:41 | P.PNIM_ITS ---
Progress Note: A&P Assessment and Plan (1) Pancolitis: Code(s): K51.00 - Ulcerative (chronic) pancolitis without complications Status: Acute (2) Hematochezia: Code(s): K92.1 - Melena Status: Acute (3) Acute hyponatremia: Code(s): E87.1 - Hypo-osmolality and hyponatremia Status: Acute Plan Pancolitis with abd pain Patient presented with bloody diarrhea and abd pain CT AP showed pancolitis F/u with stool and Blood culture, Fecal Calprotectin Continue Rocephin and Flagyl C diff negative, discontinued Dificid PRN Dicyclomine for abd pain GI eval noted, recommends colonoscopy and if patient is unable to do it inpatient then she will continue f/u with her primary GI Continue IVF and monitor Microcytic anemia HB 11.3 and MCV 84 Iron panel and ferritin pending monitor H and H Hyponatremia resolving Na 136 from 135 continue IVF monitor DVT prophylaxis on SCDs Subjective Date/time seen: 08/22/24 10:41 Interval history: Patient noted that diarrhea is improving however she has had 3 bowel movements this morning Review of Systems Review of Systems: 12 systems were reviewed with pertinent positives and negatives per HPI. Except as documented in the HPI, all other systems were reviewed and are negative. Exam Narrative: Weight 89.4 kg BMI 36 Const: Other: Obese, no acute distress, appears stated age HENMT: Other: Mucous membranes are tacky, no oral pharyngeal erythema Eyes: Other: Pupils are equal and reactive, no scleral icterus Neck: Other: Large neck circumference, supple Resp: Other: Clear to auscultation bilaterally anterior trujillo, no increased work of breathing Cardio: Other: Regular rate, regular rhythm, 2+ bilateral radial pedal pulses GI: Other: Normoactive bowel sounds, soft, no organomegaly Skin: Other: No jaundice, no pallor Neuro: Other: Alert oriented, speech is clear, no facial asymmetry, no localizing neurologic deficits noted during the course of conversation Extrem: Other: No clubbing, cyanosis or edema Psych: Other: Appropriate mood and affect, pleasant and cooperative, judgment and insight intact Objective Data Vital Signs Vital Signs: Vital Signs - 24 hr 08/21/24 17:19 08/21/24 18:25 08/21/24 18:31 Temperature 98.1 F Pulse Rate 82 Respiratory Rate 16 Blood Pressure 130/73 120/75 105/64 Pulse Oximetry 100 98 Oxygen Delivery Room Air Fraction of Inspired Oxygen 08/21/24 19:01 08/21/24 19:41 08/21/24 20:34 Temperature Pulse Rate 69 Respiratory Rate 16 Blood Pressure 119/76 123/75 111/62 Pulse Oximetry 99 99 98 Oxygen Delivery Fraction of Inspired Oxygen 08/21/24 21:01 08/21/24 23:00 08/21/24 23:15 Temperature 97.4 F L Pulse Rate 72 81 73 Respiratory Rate 14 16 Blood Pressure 128/72 109/63 108/56 L Pulse Oximetry 100 99 97 Oxygen Delivery Fraction of Inspired Oxygen 08/22/24 05:10 08/22/24 08:06 08/21/24 23:09 Temperature 97.1 F L Pulse Rate 80 81 Respiratory Rate 20 14 Blood Pressure 109/67 109/63 Pulse Oximetry 98 99 99 Oxygen Delivery Room Air Fraction of Inspired Oxygen 21 Intake/Output Intake/Output: Intake & Output 08/19/24 08/20/24 08/21/24 08/22/24 23:59 23:59 23:59 23:59 Intake Total 1999 610 Balance 1999 610 Meds/Results Medications: Active Medications Generic Name Dose Route Start Last Admin Trade Name Freq PRN Reason Stop Dose Admin Acetaminophen 500 mg 08/22/24 00:13 Acetaminophen 500 Mg Tablet PO Q4H PRN Mild Pain (1-3) or Fever Dicyclomine HCl 10 mg 08/22/24 09:10 Dicyclomine Hcl 10 Mg Capsule PO QID PRN Abdominal Cramping Ceftriaxone Sodium 1 gm in 50 mls @ 100 mls/hr 08/22/24 03:25 08/22/24 04:40 Rocephin 1 Gm/Ns 50 Ml IVPB Infused DAILY@2200 JUNI Infusion Metronidazole 500 mg in 100 mls @ 100 mls/hr 08/22/24 04:00 08/22/24 06:29 Flagyl 500 Mg/Iso Soln 100 Ml IVPB Infused Q8HR JUNI Infusion Morphine Sulfate 4 mg 08/22/24 00:13 Morphine Sulfate (*Crx) 4 Mg/Ml Inj IV PUSH Q4H PRN Breakthrough Pain Ondansetron HCl 4 mg 08/22/24 03:43 Ondansetron Inj 4 Mg/2 Ml Vial IV PUSH Q4H PRN Nausea And Vomiting Oxycodone HCl 2.5 mg 08/22/24 00:13 08/22/24 09:33 Oxycodone Hcl (*Crx) 2.5 Mg Tab Ir PO 2.5 mg Q4H PRN Administration Pain 4-6 Oxycodone HCl 5 mg 08/22/24 00:13 08/22/24 05:12 Oxycodone Hcl (*Crx) 5 Mg Tab Ir PO 5 mg Q4H PRN Administration Pain Rated 7-10 Vitamin D 2,000 units 08/22/24 09:00 08/22/24 09:34 Cholecalciferol 1,000 Units Tablet PO 2,000 units DAILY JUNI Administration Radiology Results: ITS Impressions Abdomen/Pelvis CT 08/21/24 21:30 IMPRESSION: Findings consistent with a pancolitis, as detailed above. Fatty infiltration of an enlarged liver. Left basilar atelectasis. Labs Labs: Laboratory Results - last 24 hr 08/21/24 08/21/24 08/21/24 17:55 18:25 18:27 WBC 16.7 H RBC 4.48 Hgb 12.7 Hct 37.8 MCV 84.4 MCH 28.3 MCHC 33.6 RDW 14.1 Plt Count 316 MPV 9.2 Immature Gran % (Auto) 0.5 Neut % (Auto) 84.3 H Lymph % (Auto) 10.9 L [place] % (Auto) 3.8 Eos % (Auto) 0.3 Baso % (Auto) 0.2 Lymph # (Auto) 1.82 [place] # (Auto) 0.6 Eos # (Auto) 0.1 Baso # (Auto) 0.0 Abs Immat Gran (auto) 0.09 H Absolute Neuts (auto) 14.1 H Absolute Nucleated RBC 0.000 Nucleated RBC % 0.0 Sodium 135 L Potassium 3.8 Chloride 102 Carbon Dioxide 24 Anion Gap 9 BUN 5 L Creatinine 0.60 L Estim Creat Clear Calc 124 Estimated GFR > 60 Glucose 130 H Lactic Acid Calcium 8.7 Total Bilirubin 0.5 AST 53 H ALT 55 H Alkaline Phosphatase 73 Total Protein 8.0 Albumin 4.3 Lipase 46 Urine Color Yellow Urine Appearance Clear Urine pH 6.0 Ur Specific [place] 1.018 Urine Protein Negative Urine Glucose (UA) Negative Urine Ketones Negative Ur Blood (Man) Negative Urine Nitrate Negative Urine Bilirubin Negative Urine Urobilinogen 0.2 Leukocyte Esterase Rfl Negative POC Urine HCG, Qual Negative C. difficile (PCR) 08/21/24 08/21/24 08/21/24 18:46 22:18 22:43 WBC RBC Hgb 12.0 Hct 34.7 L MCV MCH MCHC RDW Plt Count MPV Immature Gran % (Auto) Neut % (Auto) Lymph % (Auto) [place] % (Auto) Eos % (Auto) Baso % (Auto) Lymph # (Auto) [place] # (Auto) Eos # (Auto) Baso # (Auto) Abs Immat Gran (auto) Absolute Neuts (auto) Absolute Nucleated RBC Nucleated RBC % Sodium Potassium Chloride Carbon Dioxide Anion Gap BUN Creatinine Estim Creat Clear Calc Estimated GFR Glucose Lactic Acid 2.2 H 1.4 Calcium Total Bilirubin AST ALT Alkaline Phosphatase Total Protein Albumin Lipase Urine Color Urine Appearance Urine pH Ur Specific [place] Urine Protein Urine Glucose (UA) Urine Ketones Ur Blood (Man) Urine Nitrate Urine Bilirubin Urine Urobilinogen Leukocyte Esterase Rfl POC Urine HCG, Qual C. difficile (PCR) 08/22/24 08/22/24 01:09 05:57 WBC 14.2 H RBC 3.90 L Hgb 11.3 L Hct 32.8 L MCV 84.1 MCH 29.0 MCHC 34.5 RDW 14.1 Plt Count 261 MPV 9.5 Immature Gran % (Auto) Neut % (Auto) Lymph % (Auto) [place] % (Auto) Eos % (Auto) Baso % (Auto) Lymph # (Auto) [place] # (Auto) Eos # (Auto) Baso # (Auto) Abs Immat Gran (auto) Absolute Neuts (auto) Absolute Nucleated RBC Nucleated RBC % Sodium 136 L Potassium 3.4 Chloride 103 Carbon Dioxide 25 Anion Gap 8 BUN 3 L Creatinine 0.50 L Estim Creat Clear Calc 150 Estimated GFR > 60 Glucose 114 H Lactic Acid Calcium 7.7 L Total Bilirubin 0.4 AST 33 ALT 47 H Alkaline Phosphatase 67 Total Protein 6.0 L Albumin 3.5 Lipase Urine Color Urine Appearance Urine pH Ur Specific [place] Urine Protein Urine Glucose (UA) Urine Ketones Ur Blood (Man) Urine Nitrate Urine Bilirubin Urine Urobilinogen Leukocyte Esterase Rfl POC Urine HCG, Qual C. difficile (PCR) Negative Quality VTE Prophylaxis VTE prophylaxis: mechanical ordered (SCDs)
[2024-08-22 11:28] LABS: Iron 27 ug/dL (37-170)
[2024-08-22 11:38] LABS: Percent Iron Saturation 8 % (20-50)
[2024-08-22] MEDS: DICYCLOMINE HCL 10 MG CAPSULE PO ×2 (12:21→21:14)
[2024-08-22 14:00] VITALS: BP 103/63; PULSE 80; RESP 16; TEMP 36.9; O2SAT 98
[2024-08-22] MEDS: ACETAMINOPHEN 500 MG TABLET PO (15:35)
[2024-08-22 21:35] VITALS: BP 127/72; PULSE 94; RESP 18; TEMP 36.6; O2SAT 96
[2024-08-23] MEDS: oxyCODONE HCL (*CRX) 2.5 MG TAB IR PO ×2 (02:33→12:41)
[2024-08-23 04:50] VITALS: BP 105/65; PULSE 94; RESP 20; TEMP 35.9; O2SAT 95
[2024-08-23] MEDS: metroNIDAZOLE 500 MG/ISO 100ML 500 MG/100 ML BAG 100 MG IVPB (05:35)
[2024-08-23] MEDS: DICYCLOMINE HCL 10 MG CAPSULE PO ×2 (08:06→14:01)
[2024-08-23] MEDS: CHOLECALCIFEROL 1,000 UNITS TABLET 2000 UNITS PO (08:06)
[2024-08-23 09:32] LABS: Basophils Absolute Auto 0.1 K/mm3 (0.0-0.1); Basophils Percent Auto 0.3 % (0.2-1.2); Eosinophils Percent Auto 0.2 % (0-4.4); Hematocrit 35.1 % (37.0-47.0); Hemoglobin 12.1 g/dL (12.0-15.0); Immature Granulocyte Absolute 0.17 K/mm3 (0.00-0.031); Immature Granulocyte Percent A 0.8 % (0-0.5); Lymphocytes Absolute Auto 2.31 K/mm3 (0.9-3.2); Lymphocytes Percent Auto 11.3 % (18.3-44.2); Mean Corpuscular HGB Conc 34.5 g/dl (32-36); Mean Corpuscular Hemoglobin 28.7 pg (26-34); Mean Corpuscular Volume 83.4 fl (80-100); Mean Platelet Volume 9.3 fl (7.4-10.4); Neutrophils Absolute Auto 16.8 K/mm3 (1.3-6.7); Neutrophils Percent Auto 82.4 % (45.5-73.1); Platelet Count Result 291 k/mm3 (150-375); Red Blood Count 4.21 M/mm3 (4.2-5.4); Red Cell Distribution Width 13.9 % (11.5-14.5); White Blood Count 20.4 K/mm3 (4.5-10.0)
[2024-08-23 09:45] LABS: Alanine Aminotransferase 33 U/L (6-35); Albumin Level 3.6 g/dL (3.5-5.1); Alkaline Phosphatase 64 U/L (38-126); Anion Gap 8 mmol/L (4-12); Aspartate Amino Transferase 25 U/L (14-36); Bilirubin,Total 0.3 mg/dL (0.2-1.3); Blood Urea Nitrogen 3 mg/dL (7-17); Calcium 8.4 mg/dL (8.4-10.2); Carbon Dioxide 27 mmol/L (22-30); Chloride 100 mmol/L (98-107); Estimated CRCL calculation 150 ml/min; Estimated Glomerular Filt Rate > 60; Glucose 124 mg/dL (65-110); Potassium 3.3 mmol/L (3.4-5.0); Sodium 135 mmol/L (137-145)
[2024-08-23 10:11] LABS: Atypical Lymphocytes Present; Platelet Estimate Adequate (Adequate); Schistocytes None Seen
--- NOTE | 2024-08-23 12:49 | P.PNIM_ITS ---
Progress Note: A&P Assessment and Plan (1) Pancolitis: Code(s): K51.00 - Ulcerative (chronic) pancolitis without complications Status: Acute (2) Hematochezia: Code(s): K92.1 - Melena Status: Acute (3) Acute hyponatremia: Code(s): E87.1 - Hypo-osmolality and hyponatremia Status: Acute Plan Pancolitis with abd pain Patient presented with bloody diarrhea and abd pain Noted pain has not improved, however diarrhea has improved CT AP showed pancolitis F/u with stool and Blood culture, Fecal Calprotectin Continue Rocephin and Flagyl C diff negative, discontinued Dificid PRN Dicyclomine for abd pain GI eval noted, recommends colonoscopy and if patient is unable to do it inpatient then she will continue f/u with her primary GI Continue IVF and monitor Microcytic anemia HB 11.3 and MCV 84 Ferritin 37, Isat 8 start IV iron monitor H and H Hyponatremia resolved monitor monitor DVT prophylaxis on SCDs Subjective Date/time seen: 08/23/24 12:49 Interval history: Patient complained of pain still not changed from admission and still very disabling. Will monitor one more day Review of Systems Review of Systems: 12 systems were reviewed with pertinent positives and negatives per HPI. Except as documented in the HPI, all other systems were reviewed and are negative. Exam Narrative: Weight 89.4 kg BMI 36 Const: Other: Obese, no acute distress, appears stated age HENMT: Other: Mucous membranes are tacky, no oral pharyngeal erythema Eyes: Other: Pupils are equal and reactive, no scleral icterus Neck: Other: Large neck circumference, supple Resp: Other: Clear to auscultation bilaterally anterior trujillo, no increased work of breathing Cardio: Other: Regular rate, regular rhythm, 2+ bilateral radial pedal pulses GI: Other: Normoactive bowel sounds, soft, no organomegaly Skin: Other: No jaundice, no pallor Neuro: Other: Alert oriented, speech is clear, no facial asymmetry, no localizing neurologic deficits noted during the course of conversation Extrem: Other: No clubbing, cyanosis or edema Psych: Other: Appropriate mood and affect, pleasant and cooperative, judgment and insight intact Objective Data Vital Signs Vital Signs: Vital Signs - 24 hr 08/22/24 14:00 08/22/24 21:35 08/23/24 04:50 Temperature 98.5 F 97.8 F 96.7 F L Pulse Rate 80 94 94 Respiratory Rate 16 18 20 Blood Pressure 103/63 127/72 105/65 Pulse Oximetry 98 96 95 Intake/Output Intake/Output: Intake & Output 08/20/24 08/21/24 08/22/24 08/23/24 23:59 23:59 23:59 23:59 Intake Total 1999 1310 200 Balance 1999 1310 200 Meds/Results Medications: Active Medications Generic Name Dose Route Start Last Admin Trade Name Freq PRN Reason Stop Dose Admin Acetaminophen 500 mg 08/22/24 00:13 08/22/24 15:35 Acetaminophen 500 Mg Tablet PO 500 mg Q4H PRN Administration Mild Pain (1-3) or Fever Dicyclomine HCl 10 mg 08/22/24 09:10 08/23/24 08:06 Dicyclomine Hcl 10 Mg Capsule PO 10 mg QID PRN Administration Abdominal Cramping Ceftriaxone Sodium 1 gm in 50 mls @ 100 mls/hr 08/22/24 03:25 08/22/24 21:03 Rocephin 1 Gm/Ns 50 Ml IVPB 100 mls/hr DAILY@2200 JUNI Administration Metronidazole 500 mg 08/23/24 14:00 Metronidazole 500 Mg Tablet PO Q8HR JUNI Morphine Sulfate 4 mg 08/22/24 00:13 Morphine Sulfate (*Crx) 4 Mg/Ml Inj IV PUSH Q4H PRN Breakthrough Pain Ondansetron HCl 4 mg 08/22/24 03:43 Ondansetron Inj 4 Mg/2 Ml Vial IV PUSH Q4H PRN Nausea And Vomiting Oxycodone HCl 2.5 mg 08/22/24 00:13 08/23/24 12:41 Oxycodone Hcl (*Crx) 2.5 Mg Tab Ir PO 2.5 mg Q4H PRN Administration Pain 4-6 Oxycodone HCl 5 mg 08/22/24 00:13 08/22/24 20:03 Oxycodone Hcl (*Crx) 5 Mg Tab Ir PO 5 mg Q4H PRN Administration Pain Rated 7-10 Vitamin D 2,000 units 08/22/24 09:00 08/23/24 08:06 Cholecalciferol 1,000 Units Tablet PO 2,000 units DAILY JUNI Administration Radiology Results: ITS Impressions Abdomen/Pelvis CT 08/21/24 21:30 IMPRESSION: Findings consistent with a pancolitis, as detailed above. Fatty infiltration of an enlarged liver. Left basilar atelectasis. Labs Labs: Laboratory Results - last 24 hr 08/23/24 09:09 WBC 20.4 H RBC 4.21 Hgb 12.1 Hct 35.1 L MCV 83.4 MCH 28.7 MCHC 34.5 RDW 13.9 Plt Count 291 MPV 9.3 Immature Gran % (Auto) 0.8 H Neut % (Auto) 82.4 H Lymph % (Auto) 11.3 L [place] % (Auto) 5.0 Eos % (Auto) 0.2 Baso % (Auto) 0.3 Lymph # (Auto) 2.31 [place] # (Auto) 1.0 H Eos # (Auto) 0.0 Baso # (Auto) 0.1 Abs Immat Gran (auto) 0.17 H Absolute Neuts (auto) 16.8 H Absolute Nucleated RBC 0.000 Nucleated RBC % 0.0 Atypical Lymphocytes Present Platelet Estimate Adequate Schistocytes None seen Sodium 135 L Potassium 3.3 L Chloride 100 Carbon Dioxide 27 Anion Gap 8 BUN 3 L Creatinine 0.50 L Estim Creat Clear Calc 150 Estimated GFR > 60 Glucose 124 H Calcium 8.4 Magnesium 2.0 Total Bilirubin 0.3 AST 25 ALT 33 Alkaline Phosphatase 64 Total Protein 7.0 Albumin 3.6 Quality VTE Prophylaxis VTE prophylaxis: mechanical ordered (SCDs)
[2024-08-23 14:00] VITALS: BP 116/69; PULSE 98; RESP 22; TEMP 36.2; O2SAT 97
[2024-08-23] MEDS: IRON SUCROSE COMPLEX 400 MG, IRON SUCROSE COMPLEX 100 MG in SODIUM CHLORIDE 0.9% IV 250 ML 78.57 MG IVPB (14:00)
[2024-08-23] MEDS: metroNIDAZOLE 500 MG TABLET PO (14:01)
[2024-08-23] MEDS: ACETAMINOPHEN 500 MG TABLET PO (15:23)
--- NOTE | 2024-08-23 17:06 | PC.NURSE ---
RN spoke to Dr. Rojo and informed him of shigella toxins in the pt stool and informed him that the pt is in a lot of pain that the current pain medication isn't helping with the pain so pain medications were adjusted and changed and a ct w/o was ordered for the abd.
--- NOTE | 2024-08-23 17:35 | WPDGIPROGNO ---
Progress Note: A&P Assessment and Plan (1) Shiga toxin-producing Escherichia coli (E. coli) (STEC) O157: Code(s): A49.8 - Other bacterial infections of unspecified site Status: Acute Assessment and Plan: just received abnormal stool test, contact isolation discontinue antibiotics (recommendation is to stop antibiotics because higher risk of HUS) we need to monitor for hemolytic uremic syndrome- she has normal renal function and platelets, still with pain and blood in stools supportive care (2) SIRS (systemic inflammatory response syndrome): Code(s): R65.10 - Systemic inflammatory response syndrome (SIRS) of non-infectious origin without acute organ dysfunction Status: Acute Assessment and Plan: from e coli colitis (3) Diarrhea: Qualifiers: Diarrhea type: presumed infectious Qualified Code(s): R19.7 - Diarrhea, unspecified Code(s): R19.7 - Diarrhea, unspecified Status: Acute (4) Hematochezia: Code(s): K92.1 - Melena Status: Acute (5) Pancolitis: Code(s): K51.00 - Ulcerative (chronic) pancolitis without complications Status: Acute Assessment and Plan: supportive care stop abx no need of colonoscopy (6) Abdominal pain: Qualifiers: Abdominal location: periumbilical Qualified Code(s): R10.33 - Periumbilical pain Code(s): R10.9 - Unspecified abdominal pain Status: Acute Subjective Date/time seen: 08/23/24 17:35 Interval history: still with abdominal pain and blood in stools, no major changes, uncomfortable Review of Systems Review of Systems: All systems reviewed & are unremarkable except as noted in HPI and below Exam Const: General: no acute distress HENMT: Face/Nose/Sinus: Normal nares present Eyes: General: appearance normal, both eyes and all related structures Neck: Neck: supple Resp: Auscultation: clear to auscultation bilaterally Cardio: Rate: regular rate Rhythm: regular rhythm GI: GI Palp: Yes Tenderness to palpation present (GI) (ttp diffusely, + guarding but no rebound) Skin: General skin exam: normal color Neuro: General: gait normal Speech: normal speech Motor exam (neuro): 5/5 motor strength present throughout Extrem: General: normal to inspection Psych: Mental Status: mental status grossly normal Objective Data Vital Signs Vital Signs: Vital Signs - 24 hr 08/22/24 21:35 08/23/24 04:50 08/23/24 08:00 Temperature 97.8 F 96.7 F L Pulse Rate 94 94 Respiratory Rate 18 20 Blood Pressure 127/72 105/65 Pulse Oximetry 96 95 Oxygen Delivery Room Air 08/23/24 14:00 Temperature 97.1 F L Pulse Rate 98 Respiratory Rate 22 H Blood Pressure 116/69 Pulse Oximetry 97 Oxygen Delivery Intake/Output Intake/Output: Intake & Output 08/20/24 08/21/24 08/22/24 08/23/24 23:59 23:59 23:59 23:59 Intake Total 1999 1310 440 Balance 1999 1310 440 Meds/Results Medications: Active Medications Generic Name Dose Route Start Last Admin Trade Name Freq PRN Reason Stop Dose Admin Acetaminophen 500 mg 08/22/24 00:13 08/23/24 15:23 Acetaminophen 500 Mg Tablet PO 500 mg Q4H PRN Administration Mild Pain (1-3) or Fever Dicyclomine HCl 10 mg 08/22/24 09:10 08/23/24 14:01 Dicyclomine Hcl 10 Mg Capsule PO 10 mg QID PRN Administration Abdominal Cramping Morphine Sulfate 4 mg 08/22/24 00:13 Morphine Sulfate (*Crx) 4 Mg/Ml Inj IV PUSH Q4H PRN Breakthrough Pain Ondansetron HCl 4 mg 08/22/24 03:43 Ondansetron Inj 4 Mg/2 Ml Vial IV PUSH Q4H PRN Nausea And Vomiting Oxycodone HCl 5 mg 08/23/24 17:15 Oxycodone Hcl (*Crx) 5 Mg Tab Ir PO Q4H PRN Pain Rated 4-6 Oxycodone HCl 10 mg 08/23/24 17:21 Oxycodone Hcl (*Crx) 5 Mg Tab Ir PO Q4H PRN Pain Rated 7-10 Vitamin D 2,000 units 08/22/24 09:00 08/23/24 08:06 Cholecalciferol 1,000 Units Tablet PO 2,000 units DAILY JUNI Administration Radiology Results: ITS Impressions Abdomen/Pelvis CT 08/21/24 21:30 IMPRESSION: Findings consistent with a pancolitis, as detailed above. Fatty infiltration of an enlarged liver. Left basilar atelectasis. Labs Labs: Laboratory Results - last 24 hr 08/23/24 09:09 WBC 20.4 H RBC 4.21 Hgb 12.1 Hct 35.1 L MCV 83.4 MCH 28.7 MCHC 34.5 RDW 13.9 Plt Count 291 MPV 9.3 Immature Gran % (Auto) 0.8 H Neut % (Auto) 82.4 H Lymph % (Auto) 11.3 L [place] % (Auto) 5.0 Eos % (Auto) 0.2 Baso % (Auto) 0.3 Lymph # (Auto) 2.31 [place] # (Auto) 1.0 H Eos # (Auto) 0.0 Baso # (Auto) 0.1 Abs Immat Gran (auto) 0.17 H Absolute Neuts (auto) 16.8 H Absolute Nucleated RBC 0.000 Nucleated RBC % 0.0 Atypical Lymphocytes Present Platelet Estimate Adequate Schistocytes None seen Sodium 135 L Potassium 3.3 L Chloride 100 Carbon Dioxide 27 Anion Gap 8 BUN 3 L Creatinine 0.50 L Estim Creat Clear Calc 150 Estimated GFR > 60 Glucose 124 H Calcium 8.4 Magnesium 2.0 Total Bilirubin 0.3 AST 25 ALT 33 Alkaline Phosphatase 64 Total Protein 7.0 Albumin 3.6
--- NOTE | 2024-08-23 17:56 | PM.EVENT ---
Event Note Event Note Event Note: Repeat CT ordered for this 24yo patient with pancolitis. Prior CT performed less than 24h earlier, but no significant changes in the patients chart - actually diarrhea has improved as per GI. Perhaps this order was in error? Trying to minimize exposure for this young patient. Left message for Dr Rojo on her personal cell - awaiting a return call.
[2024-08-23] MEDS: oxyCODONE HCL (*CRX) 5 MG TAB IR 10 MG PO ×2 (18:00→22:22)
[2024-08-23 20:12] VITALS: BP 112/64; PULSE 78; RESP 14; TEMP 36.2; O2SAT 96
[2024-08-24] MEDS: oxyCODONE HCL (*CRX) 5 MG TAB IR 10 MG PO ×3 (04:27→17:43)
[2024-08-24 05:30] VITALS: BP 109/61; PULSE 82; RESP 16; TEMP 36.7; O2SAT 98
[2024-08-24 07:50] LABS: Basophils Absolute Auto 0.1 K/mm3 (0.0-0.1); Basophils Percent Auto 0.4 % (0.2-1.2); Eosinophils Absolute Auto 0.1 K/mm3 (0-0.3); Eosinophils Percent Auto 0.2 % (0-4.4); Hematocrit 35.4 % (37.0-47.0); Hemoglobin 12.2 g/dL (12.0-15.0); Immature Granulocyte Absolute 0.28 K/mm3 (0.00-0.031); Immature Granulocyte Percent A 1.1 % (0-0.5); Lymphocytes Absolute Auto 3.03 K/mm3 (0.9-3.2); Lymphocytes Percent Auto 11.8 % (18.3-44.2); Mean Corpuscular HGB Conc 34.5 g/dl (32-36); Mean Corpuscular Hemoglobin 28.8 pg (26-34); Mean Corpuscular Volume 83.5 fl (80-100); Mean Platelet Volume 9.4 fl (7.4-10.4); Monocytes Absolute Auto 1.3 K/mm3 (0.1-0.6); Neutrophils Percent Auto 81.5 % (45.5-73.1); Platelet Count Result 291 k/mm3 (150-375); Red Blood Count 4.24 M/mm3 (4.2-5.4); Red Cell Distribution Width 13.9 % (11.5-14.5); White Blood Count 25.7 K/mm3 (4.5-10.0)
[2024-08-24 07:54] LABS: Lactic Acid Reflex 0.9 mmol/L (0.7-2.0)
[2024-08-24 07:56] LABS: Alanine Aminotransferase 28 U/L (6-35); Albumin Level 3.4 g/dL (3.5-5.1); Alkaline Phosphatase 77 U/L (38-126); Anion Gap 5 mmol/L (4-12); Aspartate Amino Transferase 26 U/L (14-36); Bilirubin,Total 0.5 mg/dL (0.2-1.3); Blood Urea Nitrogen 3 mg/dL (7-17); Calcium 8.3 mg/dL (8.4-10.2); Carbon Dioxide 30 mmol/L (22-30); Chloride 99 mmol/L (98-107); Estimated CRCL calculation 128 ml/min; Estimated Glomerular Filt Rate > 60; Glucose 113 mg/dL (65-110); Magnesium 2.1 mg/dL (1.6-2.3); Potassium 3.3 mmol/L (3.4-5.0); Sodium 134 mmol/L (137-145)
[2024-08-24] MEDS: CHOLECALCIFEROL 1,000 UNITS TABLET 2000 UNITS PO (08:58)
[2024-08-24] MEDS: DICYCLOMINE HCL 10 MG CAPSULE PO ×3 (08:59→18:45)
--- NOTE | 2024-08-24 12:34 | P.PNIM_ITS ---
Progress Note: A&P Assessment and Plan (1) Pancolitis: Code(s): K51.00 - Ulcerative (chronic) pancolitis without complications Status: Acute (2) Hematochezia: Code(s): K92.1 - Melena Status: Acute (3) Acute hyponatremia: Code(s): E87.1 - Hypo-osmolality and hyponatremia Status: Acute Plan Pancolitis with abd pain Dysentery Patient presented with bloody diarrhea and abd pain NO bowel movement since yesterday and abd pain has improved CT AP showed pancolitis Stool culture positive for Shiga toxins Abx discontinued C diff negative, Hb, cr and Plts wnl Patient is much better today and tolerating diet and abd pain markedly improved GI eval noted, recommends colonoscopy and if patient is unable to do it inpatient then she will continue f/u with her primary GI Continue IVF and monitor closely Microcytic anemia HB 11.3 and MCV 84 Ferritin 37, Isat 8 S/p IV iron 1000/1000mg monitor H and H Hyponatremia resolved monitor monitor DVT prophylaxis on SCDs Subjective Date/time seen: 08/24/24 12:34 Interval history: Patient noted abd pain is improving however stool culture positive for Shiga toxin Abx discontinued Cr, Hb and plts wnl. will monitor one more night Review of Systems Review of Systems: 12 systems were reviewed with pertinent positives and negatives per HPI. Except as documented in the HPI, all other systems were reviewed and are negative. Exam Narrative: Weight 89.4 kg BMI 36 Const: Other: Obese, no acute distress, appears stated age HENMT: Other: Mucous membranes are tacky, no oral pharyngeal erythema Eyes: Other: Pupils are equal and reactive, no scleral icterus Neck: Other: Large neck circumference, supple Resp: Other: Clear to auscultation bilaterally anterior trujillo, no increased work of breathing Cardio: Other: Regular rate, regular rhythm, 2+ bilateral radial pedal pulses GI: Other: Normoactive bowel sounds, soft, no organomegaly Skin: Other: No jaundice, no pallor Neuro: Other: Alert oriented, speech is clear, no facial asymmetry, no localizing neurologic deficits noted during the course of conversation Extrem: Other: No clubbing, cyanosis or edema Psych: Other: Appropriate mood and affect, pleasant and cooperative, judgment and insight intact Objective Data Vital Signs Vital Signs: Vital Signs - 24 hr 08/23/24 14:00 08/23/24 20:12 08/24/24 05:30 Temperature 97.1 F L 97.1 F L 98.1 F Pulse Rate 98 78 82 Respiratory Rate 22 H 14 16 Blood Pressure 116/69 112/64 109/61 Pulse Oximetry 97 96 98 Intake/Output Intake/Output: Intake & Output 08/21/24 08/22/24 08/23/24 08/24/24 23:59 23:59 23:59 23:59 Intake Total 1999 1310 715 550 Balance 1999 1310 715 550 Meds/Results Medications: Active Medications Generic Name Dose Route Start Last Admin Trade Name Freq PRN Reason Stop Dose Admin Acetaminophen 500 mg 08/22/24 00:13 08/23/24 15:23 Acetaminophen 500 Mg Tablet PO 500 mg Q4H PRN Administration Mild Pain (1-3) or Fever Dicyclomine HCl 10 mg 08/22/24 09:10 08/24/24 08:59 Dicyclomine Hcl 10 Mg Capsule PO 10 mg QID PRN Administration Abdominal Cramping Morphine Sulfate 4 mg 08/22/24 00:13 Morphine Sulfate (*Crx) 4 Mg/Ml Inj IV PUSH Q4H PRN Breakthrough Pain Ondansetron HCl 4 mg 08/22/24 03:43 Ondansetron Inj 4 Mg/2 Ml Vial IV PUSH Q4H PRN Nausea And Vomiting Oxycodone HCl 5 mg 08/23/24 17:15 Oxycodone Hcl (*Crx) 5 Mg Tab Ir PO Q4H PRN Pain Rated 4-6 Oxycodone HCl 10 mg 08/23/24 17:21 08/24/24 08:58 Oxycodone Hcl (*Crx) 5 Mg Tab Ir PO 10 mg Q4H PRN Administration Pain Rated 7-10 Vitamin D 2,000 units 08/22/24 09:00 08/24/24 08:58 Cholecalciferol 1,000 Units Tablet PO 2,000 units DAILY JUNI Administration Radiology Results: ITS Impressions Abdomen/Pelvis CT 08/21/24 21:30 IMPRESSION: Findings consistent with a pancolitis, as detailed above. Fatty infiltration of an enlarged liver. Left basilar atelectasis. Labs Labs: Laboratory Results - last 24 hr 08/24/24 08/24/24 07:21 07:22 WBC 25.7 H RBC 4.24 Hgb 12.2 Hct 35.4 L MCV 83.5 MCH 28.8 MCHC 34.5 RDW 13.9 Plt Count 291 MPV 9.4 Immature Gran % (Auto) 1.1 H Neut % (Auto) 81.5 H Lymph % (Auto) 11.8 L [place] % (Auto) 5.0 Eos % (Auto) 0.2 Baso % (Auto) 0.4 Lymph # (Auto) 3.03 [place] # (Auto) 1.3 H Eos # (Auto) 0.1 Baso # (Auto) 0.1 Abs Immat Gran (auto) 0.28 H Absolute Neuts (auto) 21.0 H Absolute Nucleated RBC 0.000 Nucleated RBC % 0.0 Sodium 134 L Potassium 3.3 L Chloride 99 Carbon Dioxide 30 Anion Gap 5 BUN 3 L Creatinine 0.60 L Estim Creat Clear Calc 128 Estimated GFR > 60 Glucose 113 H Lactic Acid 0.9 Calcium 8.3 L Magnesium 2.1 Total Bilirubin 0.5 AST 26 ALT 28 Alkaline Phosphatase 77 Total Protein 6.0 L Albumin 3.4 L Quality VTE Prophylaxis VTE prophylaxis: mechanical ordered (SCDs)
[2024-08-24] MEDS: oxyCODONE HCL (*CRX) 5 MG TAB IR PO ×2 (13:06→22:26)
[2024-08-24 14:00] VITALS: BP 105/61; PULSE 111; RESP 18; TEMP 37.2; O2SAT 92
[2024-08-24] MEDS: IRON SUCROSE COMPLEX 400 MG, IRON SUCROSE COMPLEX 100 MG in SODIUM CHLORIDE 0.9% IV 250 ML 78.57 MG IVPB (14:20)
--- NOTE | 2024-08-24 15:19 | WPDGIPROGNO ---
Progress Note: A&P Assessment and Plan (1) Shiga toxin-producing Escherichia coli (E. coli) (STEC) O157: Code(s): A49.8 - Other bacterial infections of unspecified site Status: Acute Assessment and Plan: antibiotics discontinued (recommendation is to stop antibiotics because higher risk of HUS) clinically better, still elevated wbc normal renal function and platelets diet as tolerated (2) SIRS (systemic inflammatory response syndrome): Code(s): R65.10 - Systemic inflammatory response syndrome (SIRS) of non-infectious origin without acute organ dysfunction Status: Acute Assessment and Plan: from e coli colitis improved (3) Diarrhea: Qualifiers: Diarrhea type: presumed infectious Qualified Code(s): R19.7 - Diarrhea, unspecified Code(s): R19.7 - Diarrhea, unspecified Status: Acute (4) Hematochezia: Code(s): K92.1 - Melena Status: Acute (5) Pancolitis: Code(s): K51.00 - Ulcerative (chronic) pancolitis without complications Status: Acute Assessment and Plan: supportive care stop abx no need of colonoscopy (6) Abdominal pain: Qualifiers: Abdominal location: periumbilical Qualified Code(s): R10.33 - Periumbilical pain Code(s): R10.9 - Unspecified abdominal pain Status: Acute Subjective Date/time seen: 08/24/24 15:19 Interval history: clinically much better, pain has improved, still with urgency but no more BM Review of Systems Review of Systems: All systems reviewed & are unremarkable except as noted in HPI and below Exam Const: General: no acute distress HENMT: Face/Nose/Sinus: Normal nares present Eyes: General: appearance normal, both eyes and all related structures Neck: Neck: supple Resp: Auscultation: clear to auscultation bilaterally Cardio: Rate: regular rate Rhythm: regular rhythm GI: GI Palp: Yes Tenderness to palpation present (GI) (less tender today) Skin: General skin exam: normal color Neuro: General: gait normal Speech: normal speech Motor exam (neuro): 5/5 motor strength present throughout Extrem: General: normal to inspection Psych: Mental Status: mental status grossly normal Objective Data Vital Signs Vital Signs: Vital Signs - 24 hr 08/23/24 20:12 08/24/24 05:30 08/24/24 14:00 Temperature 97.1 F L 98.1 F 98.9 F Pulse Rate 78 82 111 H Respiratory Rate 14 16 18 Blood Pressure 112/64 109/61 105/61 Pulse Oximetry 96 98 92 Intake/Output Intake/Output: Intake & Output 08/21/24 08/22/24 08/23/24 08/24/24 23:59 23:59 23:59 23:59 Intake Total 1999 1561 581 4516 Balance 1999 6305 202 1810 Meds/Results Medications: Active Medications Generic Name Dose Route Start Last Admin Trade Name Freq PRN Reason Stop Dose Admin Acetaminophen 500 mg 08/22/24 00:13 08/23/24 15:23 Acetaminophen 500 Mg Tablet PO 500 mg Q4H PRN Administration Mild Pain (1-3) or Fever Dicyclomine HCl 10 mg 08/22/24 09:10 08/24/24 13:05 Dicyclomine Hcl 10 Mg Capsule PO 10 mg QID PRN Administration Abdominal Cramping Iron Sucrose 400 mg/ Iron 275 mls @ 78.571 mls/hr 08/24/24 14:00 08/24/24 14:20 Sucrose 100 mg/ Sodium IVPB 08/24/24 17:29 78.57 mls/hr Chloride ONCE ONE Administration Morphine Sulfate 4 mg 08/22/24 00:13 Morphine Sulfate (*Crx) 4 Mg/Ml Inj IV PUSH Q4H PRN Breakthrough Pain Ondansetron HCl 4 mg 08/22/24 03:43 Ondansetron Inj 4 Mg/2 Ml Vial IV PUSH Q4H PRN Nausea And Vomiting Oxycodone HCl 5 mg 08/23/24 17:15 08/24/24 13:06 Oxycodone Hcl (*Crx) 5 Mg Tab Ir PO 5 mg Q4H PRN Administration Pain Rated 4-6 Oxycodone HCl 10 mg 08/23/24 17:21 08/24/24 08:58 Oxycodone Hcl (*Crx) 5 Mg Tab Ir PO 10 mg Q4H PRN Administration Pain Rated 7-10 Vitamin D 2,000 units 08/22/24 09:00 08/24/24 08:58 Cholecalciferol 1,000 Units Tablet PO 2,000 units DAILY JUNI Administration Radiology Results: ITS Impressions Abdomen/Pelvis CT 08/21/24 21:30 IMPRESSION: Findings consistent with a pancolitis, as detailed above. Fatty infiltration of an enlarged liver. Left basilar atelectasis. Labs Labs: Laboratory Results - last 24 hr 08/24/24 08/24/24 07:21 07:22 WBC 25.7 H RBC 4.24 Hgb 12.2 Hct 35.4 L MCV 83.5 MCH 28.8 MCHC 34.5 RDW 13.9 Plt Count 291 MPV 9.4 Immature Gran % (Auto) 1.1 H Neut % (Auto) 81.5 H Lymph % (Auto) 11.8 L [place] % (Auto) 5.0 Eos % (Auto) 0.2 Baso % (Auto) 0.4 Lymph # (Auto) 3.03 [place] # (Auto) 1.3 H Eos # (Auto) 0.1 Baso # (Auto) 0.1 Abs Immat Gran (auto) 0.28 H Absolute Neuts (auto) 21.0 H Absolute Nucleated RBC 0.000 Nucleated RBC % 0.0 Sodium 134 L Potassium 3.3 L Chloride 99 Carbon Dioxide 30 Anion Gap 5 BUN 3 L Creatinine 0.60 L Estim Creat Clear Calc 128 Estimated GFR > 60 Glucose 113 H Lactic Acid 0.9 Calcium 8.3 L Magnesium 2.1 Total Bilirubin 0.5 AST 26 ALT 28 Alkaline Phosphatase 77 Total Protein 6.0 L Albumin 3.4 L
[2024-08-24 22:11] VITALS: BP 111/63; PULSE 105; RESP 18; TEMP 36.6; O2SAT 95
[2024-08-25] MEDS: oxyCODONE HCL (*CRX) 5 MG TAB IR PO ×4 (05:29→20:14)
[2024-08-25 06:00] VITALS: BP 111/62; PULSE 112; RESP 16; TEMP 36.1; O2SAT 94
[2024-08-25 06:24] LABS: Basophils Absolute Auto 0.1 K/mm3 (0.0-0.1); Basophils Percent Auto 0.4 % (0.2-1.2); Eosinophils Absolute Auto 0.2 K/mm3 (0-0.3); Eosinophils Percent Auto 0.6 % (0-4.4); Hematocrit 34.1 % (37.0-47.0); Hemoglobin 11.5 g/dL (12.0-15.0); Immature Granulocyte Percent A 1.7 % (0-0.5); Lymphocytes Absolute Auto 3.57 K/mm3 (0.9-3.2); Lymphocytes Percent Auto 12.4 % (18.3-44.2); Mean Corpuscular HGB Conc 33.7 g/dl (32-36); Mean Corpuscular Hemoglobin 28.1 pg (26-34); Mean Corpuscular Volume 83.4 fl (80-100); Mean Platelet Volume 9.4 fl (7.4-10.4); Monocytes Absolute Auto 1.4 K/mm3 (0.1-0.6); Neutrophils Percent Auto 79.9 % (45.5-73.1); Nucleated Red Blood Cells Perc 0.1 % (0.0-0.2); Platelet Count Result 292 k/mm3 (150-375); Red Blood Count 4.09 M/mm3 (4.2-5.4); White Blood Count 28.8 K/mm3 (4.5-10.0)
[2024-08-25 06:37] LABS: Alanine Aminotransferase 22 U/L (6-35); Albumin Level 3.2 g/dL (3.5-5.1); Alkaline Phosphatase 78 U/L (38-126); Anion Gap 7 mmol/L (4-12); Aspartate Amino Transferase 23 U/L (14-36); Bilirubin,Total 0.4 mg/dL (0.2-1.3); Blood Urea Nitrogen 4 mg/dL (7-17); Calcium 8.2 mg/dL (8.4-10.2); Carbon Dioxide 30 mmol/L (22-30); Chloride 98 mmol/L (98-107); Estimated CRCL calculation 150 ml/min; Estimated Glomerular Filt Rate > 60; Glucose 112 mg/dL (65-110); Magnesium 2.1 mg/dL (1.6-2.3); Potassium 3.5 mmol/L (3.4-5.0); Sodium 135 mmol/L (137-145)
[2024-08-25] MEDS: CHOLECALCIFEROL 1,000 UNITS TABLET 2000 UNITS PO (09:29)
--- NOTE | 2024-08-25 12:13 | PM.IMPN ---
Progress Note: A&P Assessment and Plan (1) Pancolitis: Code(s): K51.00 - Ulcerative (chronic) pancolitis without complications Status: Acute (2) Hematochezia: Code(s): K92.1 - Melena Status: Acute (3) Acute hyponatremia: Code(s): E87.1 - Hypo-osmolality and hyponatremia Status: Acute Plan Pancolitis with abd pain Dysentery Patient presented with bloody diarrhea and abd pain NO bowel movement since yesterday and abd pain has improved CT AP showed pancolitis Stool culture positive for Shiga toxins Abx discontinued C diff negative, Hb, cr and Plts wnl Patient is much better today and tolerating diet and abd pain markedly improved GI eval noted, recommends colonoscopy and if patient is unable to do it inpatient then she will continue f/u with her primary GI Continue IVF and monitor closely Leukocytosis WBC 28.8 from 14.2 monitor closely Microcytic anemia HB 11.3 and MCV 84 Ferritin 37, Isat 8 S/p IV iron 1000/1000mg monitor H and H Hyponatremia resolved monitor monitor DVT prophylaxis on SCDs monitor one more day Subjective Date/time seen: 08/25/24 12:13 Interval history: patient continues to note improvement in symptoms however WBC is worsening and thus will monitor her one more night Review of Systems Review of Systems: 12 systems were reviewed with pertinent positives and negatives per HPI. Except as documented in the HPI, all other systems were reviewed and are negative. Exam Narrative: Weight 89.4 kg BMI 36 Const: Other: Obese, no acute distress, appears stated age HENMT: Other: Mucous membranes are tacky, no oral pharyngeal erythema Eyes: Other: Pupils are equal and reactive, no scleral icterus Neck: Other: Large neck circumference, supple Resp: Other: Clear to auscultation bilaterally anterior trujillo, no increased work of breathing Cardio: Other: Regular rate, regular rhythm, 2+ bilateral radial pedal pulses GI: Other: Normoactive bowel sounds, soft, no organomegaly Skin: Other: No jaundice, no pallor Neuro: Other: Alert oriented, speech is clear, no facial asymmetry, no localizing neurologic deficits noted during the course of conversation Extrem: Other: No clubbing, cyanosis or edema Psych: Other: Appropriate mood and affect, pleasant and cooperative, judgment and insight intact Objective Data Vital Signs Vital Signs: Vital Signs - 24 hr 08/24/24 14:00 08/24/24 22:11 08/25/24 06:00 Temperature 98.9 F 97.8 F 97.0 F L Pulse Rate 111 H 105 H 112 H Respiratory Rate 18 18 16 Blood Pressure 105/61 111/63 111/62 Pulse Oximetry 92 95 94 Oxygen Delivery 08/25/24 09:30 Temperature Pulse Rate Respiratory Rate Blood Pressure Pulse Oximetry Oxygen Delivery Room Air Intake/Output Intake/Output: Intake & Output 08/22/24 08/23/24 08/24/24 08/25/24 23:59 23:59 23:59 23:59 Intake Total 8810 136 4839 540 Balance 4807 469 2627 540 Meds/Results Medications: Active Medications Generic Name Dose Route Start Last Admin Trade Name Freq PRN Reason Stop Dose Admin Acetaminophen 500 mg 08/22/24 00:13 08/23/24 15:23 Acetaminophen 500 Mg Tablet PO 500 mg Q4H PRN Administration Mild Pain (1-3) or Fever Dicyclomine HCl 10 mg 08/22/24 09:10 08/24/24 18:45 Dicyclomine Hcl 10 Mg Capsule PO 10 mg QID PRN Administration Abdominal Cramping Morphine Sulfate 4 mg 08/22/24 00:13 Morphine Sulfate (*Crx) 4 Mg/Ml Inj IV PUSH Q4H PRN Breakthrough Pain Ondansetron HCl 4 mg 08/22/24 03:43 Ondansetron Inj 4 Mg/2 Ml Vial IV PUSH Q4H PRN Nausea And Vomiting Oxycodone HCl 5 mg 08/23/24 17:15 08/25/24 09:30 Oxycodone Hcl (*Crx) 5 Mg Tab Ir PO 5 mg Q4H PRN Administration Pain Rated 4-6 Oxycodone HCl 10 mg 08/23/24 17:21 08/24/24 17:43 Oxycodone Hcl (*Crx) 5 Mg Tab Ir PO 10 mg Q4H PRN Administration Pain Rated 7-10 Vitamin D 2,000 units 08/22/24 09:00 08/25/24 09:29 Cholecalciferol 1,000 Units Tablet PO 2,000 units DAILY JUNI Administration Radiology Results: ITS Impressions Abdomen/Pelvis CT 08/21/24 21:30 IMPRESSION: Findings consistent with a pancolitis, as detailed above. Fatty infiltration of an enlarged liver. Left basilar atelectasis. Chest X-Ray 08/25/24 08:01 Impression: Probable bibasilar scarring or atelectasis, less likely pneumonia. Labs Labs: Laboratory Results - last 24 hr 08/25/24 06:01 WBC 28.8 H RBC 4.09 L Hgb 11.5 L Hct 34.1 L MCV 83.4 MCH 28.1 MCHC 33.7 RDW 14.0 Plt Count 292 MPV 9.4 Immature Gran % (Auto) 1.7 H Neut % (Auto) 79.9 H Lymph % (Auto) 12.4 L [place] % (Auto) 5.0 Eos % (Auto) 0.6 Baso % (Auto) 0.4 Lymph # (Auto) 3.57 H [place] # (Auto) 1.4 H Eos # (Auto) 0.2 Baso # (Auto) 0.1 Abs Immat Gran (auto) 0.50 H Absolute Neuts (auto) 23.0 H Absolute Nucleated RBC 0.030 H Nucleated RBC % 0.1 Sodium 135 L Potassium 3.5 Chloride 98 Carbon Dioxide 30 Anion Gap 7 BUN 4 L Creatinine 0.50 L Estim Creat Clear Calc 150 Estimated GFR > 60 Glucose 112 H Calcium 8.2 L Magnesium 2.1 Total Bilirubin 0.4 AST 23 ALT 22 Alkaline Phosphatase 78 Total Protein 6.0 L Albumin 3.2 L Quality VTE Prophylaxis VTE prophylaxis: mechanical ordered (SCDs)
[2024-08-25 14:00] VITALS: BP 101/56; PULSE 72; RESP 18; TEMP 37.1; O2SAT 96
--- NOTE | 2024-08-25 15:32 | WPDGIPROGNO ---
Progress Note: A&P Assessment and Plan (1) Shiga toxin-producing Escherichia coli (E. coli) (STEC) O157: Code(s): A49.8 - Other bacterial infections of unspecified site Status: Acute Assessment and Plan: antibiotics discontinued (recommendation is to stop antibiotics because higher risk of HUS) still elevated wbc but overall improving normal renal function and platelets she can go home tomorrow if continues to feel better (2) SIRS (systemic inflammatory response syndrome): Code(s): R65.10 - Systemic inflammatory response syndrome (SIRS) of non-infectious origin without acute organ dysfunction Status: Acute Assessment and Plan: from e coli colitis resolved (3) Diarrhea: Qualifiers: Diarrhea type: presumed infectious Qualified Code(s): R19.7 - Diarrhea, unspecified Code(s): R19.7 - Diarrhea, unspecified Status: Acute (4) Hematochezia: Code(s): K92.1 - Melena Status: Acute Assessment and Plan: almost gone (5) Pancolitis: Code(s): K51.00 - Ulcerative (chronic) pancolitis without complications Status: Acute Assessment and Plan: supportive care stop abx no need of colonoscopy (6) Abdominal pain: Qualifiers: Abdominal location: periumbilical Qualified Code(s): R10.33 - Periumbilical pain Code(s): R10.9 - Unspecified abdominal pain Status: Acute Subjective Date/time seen: 08/25/24 15:32 Interval history: overall better, only minimal bleeding and eating more feeling like going home hopefully tomorrow Review of Systems Review of Systems: All systems reviewed & are unremarkable except as noted in HPI and below Exam Const: General: no acute distress HENMT: Face/Nose/Sinus: Normal nares present Eyes: General: appearance normal, both eyes and all related structures Neck: Neck: supple Resp: Auscultation: clear to auscultation bilaterally Cardio: Rate: regular rate Rhythm: regular rhythm GI: GI Palp: Yes Tenderness to palpation present (GI) (less tender today) Skin: General skin exam: normal color Neuro: General: gait normal Speech: normal speech Motor exam (neuro): 5/5 motor strength present throughout Extrem: General: normal to inspection Psych: Mental Status: mental status grossly normal Objective Data Vital Signs Vital Signs: Vital Signs - 24 hr 08/24/24 22:11 08/25/24 06:00 08/25/24 09:30 Temperature 97.8 F 97.0 F L Pulse Rate 105 H 112 H Respiratory Rate 18 16 Blood Pressure 111/63 111/62 Pulse Oximetry 95 94 Oxygen Delivery Room Air 08/25/24 14:00 Temperature 98.8 F Pulse Rate 72 Respiratory Rate 18 Blood Pressure 101/56 L Pulse Oximetry 96 Oxygen Delivery Intake/Output Intake/Output: Intake & Output 08/22/24 08/23/24 08/24/24 08/25/24 23:59 23:59 23:59 23:59 Intake Total 5179 315 5868 990 Balance 6967 205 7794 990 Meds/Results Medications: Active Medications Generic Name Dose Route Start Last Admin Trade Name Freq PRN Reason Stop Dose Admin Acetaminophen 500 mg 08/22/24 00:13 08/23/24 15:23 Acetaminophen 500 Mg Tablet PO 500 mg Q4H PRN Administration Mild Pain (1-3) or Fever Dicyclomine HCl 10 mg 08/22/24 09:10 08/24/24 18:45 Dicyclomine Hcl 10 Mg Capsule PO 10 mg QID PRN Administration Abdominal Cramping Morphine Sulfate 4 mg 08/22/24 00:13 Morphine Sulfate (*Crx) 4 Mg/Ml Inj IV PUSH Q4H PRN Breakthrough Pain Ondansetron HCl 4 mg 08/22/24 03:43 Ondansetron Inj 4 Mg/2 Ml Vial IV PUSH Q4H PRN Nausea And Vomiting Oxycodone HCl 5 mg 08/23/24 17:15 08/25/24 13:57 Oxycodone Hcl (*Crx) 5 Mg Tab Ir PO 5 mg Q4H PRN Administration Pain Rated 4-6 Oxycodone HCl 10 mg 08/23/24 17:21 08/24/24 17:43 Oxycodone Hcl (*Crx) 5 Mg Tab Ir PO 10 mg Q4H PRN Administration Pain Rated 7-10 Vitamin D 2,000 units 08/22/24 09:00 08/25/24 09:29 Cholecalciferol 1,000 Units Tablet PO 2,000 units DAILY JUNI Administration Radiology Results: ITS Impressions Abdomen/Pelvis CT 08/21/24 21:30 IMPRESSION: Findings consistent with a pancolitis, as detailed above. Fatty infiltration of an enlarged liver. Left basilar atelectasis. Chest X-Ray 08/25/24 08:01 Impression: Probable bibasilar scarring or atelectasis, less likely pneumonia. Labs Labs: Laboratory Results - last 24 hr 08/25/24 06:01 WBC 28.8 H RBC 4.09 L Hgb 11.5 L Hct 34.1 L MCV 83.4 MCH 28.1 MCHC 33.7 RDW 14.0 Plt Count 292 MPV 9.4 Immature Gran % (Auto) 1.7 H Neut % (Auto) 79.9 H Lymph % (Auto) 12.4 L [place] % (Auto) 5.0 Eos % (Auto) 0.6 Baso % (Auto) 0.4 Lymph # (Auto) 3.57 H [place] # (Auto) 1.4 H Eos # (Auto) 0.2 Baso # (Auto) 0.1 Abs Immat Gran (auto) 0.50 H Absolute Neuts (auto) 23.0 H Absolute Nucleated RBC 0.030 H Nucleated RBC % 0.1 Sodium 135 L Potassium 3.5 Chloride 98 Carbon Dioxide 30 Anion Gap 7 BUN 4 L Creatinine 0.50 L Estim Creat Clear Calc 150 Estimated GFR > 60 Glucose 112 H Calcium 8.2 L Magnesium 2.1 Total Bilirubin 0.4 AST 23 ALT 22 Alkaline Phosphatase 78 Total Protein 6.0 L Albumin 3.2 L
[2024-08-25] MEDS: DICYCLOMINE HCL 10 MG CAPSULE PO (17:20)
[2024-08-25 20:03] VITALS: BP 105/64; PULSE 117; RESP 20; TEMP 36.6; O2SAT 93
[2024-08-26] MEDS: oxyCODONE HCL (*CRX) 5 MG TAB IR PO ×3 (03:03→20:53)
[2024-08-26 05:52] VITALS: BP 104/66; PULSE 108; RESP 20; TEMP 36.8; O2SAT 94
[2024-08-26 06:14] LABS: Basophils Absolute Auto 0.1 K/mm3 (0.0-0.1); Basophils Percent Auto 0.5 % (0.2-1.2); Eosinophils Absolute Auto 0.2 K/mm3 (0-0.3); Eosinophils Percent Auto 0.8 % (0-4.4); Hematocrit 34.6 % (37.0-47.0); Hemoglobin 12.2 g/dL (12.0-15.0); Immature Granulocyte Absolute 0.85 K/mm3 (0.00-0.031); Lymphocytes Absolute Auto 3.53 K/mm3 (0.9-3.2); Lymphocytes Percent Auto 12.5 % (18.3-44.2); Mean Corpuscular HGB Conc 35.3 g/dl (32-36); Mean Corpuscular Hemoglobin 29.5 pg (26-34); Mean Corpuscular Volume 83.6 fl (80-100); Mean Platelet Volume 9.1 fl (7.4-10.4); Monocytes Absolute Auto 1.5 K/mm3 (0.1-0.6); Monocytes Percent Auto 5.4 % (2.6-8.5); Neutrophils Absolute Auto 21.9 K/mm3 (1.3-6.7); Neutrophils Percent Auto 77.8 % (45.5-73.1); Nucleated Red Blood Cells Perc 0.1 % (0.0-0.2); Platelet Count Result 284 k/mm3 (150-375); Red Blood Count 4.14 M/mm3 (4.2-5.4); Red Cell Distribution Width 14.2 % (11.5-14.5); White Blood Count 28.2 K/mm3 (4.5-10.0)
[2024-08-26 06:23] LABS: Lactic Acid Reflex 0.8 mmol/L (0.7-2.0)
[2024-08-26 06:32] LABS: Alanine Aminotransferase 23 U/L (6-35); Albumin Level 3.4 g/dL (3.5-5.1); Alkaline Phosphatase 89 U/L (38-126); Anion Gap 7 mmol/L (4-12); Aspartate Amino Transferase 28 U/L (14-36); Bilirubin,Total 0.4 mg/dL (0.2-1.3); Blood Urea Nitrogen 4 mg/dL (7-17); Calcium 8.3 mg/dL (8.4-10.2); Carbon Dioxide 30 mmol/L (22-30); Chloride 97 mmol/L (98-107); Estimated CRCL calculation 150 ml/min; Estimated Glomerular Filt Rate > 60; Glucose 105 mg/dL (65-110); Magnesium 2.2 mg/dL (1.6-2.3); Potassium 3.6 mmol/L (3.4-5.0); Sodium 134 mmol/L (137-145)
[2024-08-26] MEDS: CHOLECALCIFEROL 1,000 UNITS TABLET 2000 UNITS PO (09:01)
[2024-08-26 14:00] VITALS: BP 119/65; PULSE 107; RESP 16; TEMP 36.5; O2SAT 99
--- NOTE | 2024-08-26 15:49 | PM.IMPN ---
Progress Note: A&P Assessment and Plan (1) Pancolitis: Code(s): K51.00 - Ulcerative (chronic) pancolitis without complications Status: Acute (2) Hematochezia: Code(s): K92.1 - Melena Status: Acute (3) Acute hyponatremia: Code(s): E87.1 - Hypo-osmolality and hyponatremia Status: Acute Plan Pancolitis with abd pain Dysentery Patient presented with bloody diarrhea and abd pain NO bowel movement since yesterday and abd pain has improved CT AP showed pancolitis Stool culture positive for Shiga toxins Abx discontinued C diff negative, Hb, cr and Plts wnl Patient is much better today and tolerating diet and abd pain markedly improved GI eval noted, recommends colonoscopy and if patient is unable to do it inpatient then she will continue f/u with her primary GI Continue IVF and monitor closely Leukocytosis likely from Cephalic vein thrombosis WBC 28.2 today from 14.2 monitor closely Left cephalic vein thrombosis complained of left arm pain and erythema Vvenous doppler positive for left cephalic vein thrombosis no anticoagulation needed Microcytic anemia HB 11.3 and MCV 84 Ferritin 37, Isat 8 S/p IV iron 1000/1000mg monitor H and H Hyponatremia resolved monitor monitor DVT prophylaxis on Sq lovenox monitor one more day Subjective Date/time seen: 08/26/24 15:49 Interval history: Comfortable at bedside WBC still elevated, but seems to have plateaued WIll discharge tomorrow if WBC trends down Complained of left arm swelling and redness Review of Systems Review of Systems: 12 systems were reviewed with pertinent positives and negatives per HPI. Except as documented in the HPI, all other systems were reviewed and are negative. Exam Narrative: Weight 89.4 kg BMI 36 Const: Other: Obese, no acute distress, appears stated age HENMT: Other: Mucous membranes are tacky, no oral pharyngeal erythema Eyes: Other: Pupils are equal and reactive, no scleral icterus Neck: Other: Large neck circumference, supple Resp: Other: Clear to auscultation bilaterally anterior trujillo, no increased work of breathing Cardio: Other: Regular rate, regular rhythm, 2+ bilateral radial pedal pulses GI: Other: Normoactive bowel sounds, soft, no organomegaly Skin: Other: No jaundice, no pallor Neuro: Other: Alert oriented, speech is clear, no facial asymmetry, no localizing neurologic deficits noted during the course of conversation Extrem: Other: No clubbing, cyanosis or edema Psych: Other: Appropriate mood and affect, pleasant and cooperative, judgment and insight intact Objective Data Vital Signs Vital Signs: Vital Signs - 24 hr 08/25/24 20:03 08/25/24 20:00 08/26/24 05:52 Temperature 97.8 F 98.3 F Pulse Rate 117 H 108 H Respiratory Rate 20 20 Blood Pressure 105/64 104/66 Pulse Oximetry 93 94 Oxygen Delivery Room Air 08/26/24 09:00 08/26/24 14:00 Temperature 97.7 F Pulse Rate 107 H Respiratory Rate 16 Blood Pressure 119/65 Pulse Oximetry 99 Oxygen Delivery Room Air Intake/Output Intake/Output: Intake & Output 08/23/24 08/24/24 08/25/24 08/26/24 23:59 23:59 23:59 23:59 Intake Total 715 1150 1140 550 Balance 715 1150 1140 550 Meds/Results Medications: Active Medications Generic Name Dose Route Start Last Admin Trade Name Freq PRN Reason Stop Dose Admin Acetaminophen 500 mg 08/22/24 00:13 08/23/24 15:23 Acetaminophen 500 Mg Tablet PO 500 mg Q4H PRN Administration Mild Pain (1-3) or Fever Dicyclomine HCl 10 mg 08/22/24 09:10 08/25/24 17:20 Dicyclomine Hcl 10 Mg Capsule PO 10 mg QID PRN Administration Abdominal Cramping Morphine Sulfate 4 mg 08/22/24 00:13 Morphine Sulfate (*Crx) 4 Mg/Ml Inj IV PUSH Q4H PRN Breakthrough Pain Ondansetron HCl 4 mg 08/22/24 03:43 Ondansetron Inj 4 Mg/2 Ml Vial IV PUSH Q4H PRN Nausea And Vomiting Oxycodone HCl 5 mg 08/23/24 17:15 08/26/24 14:21 Oxycodone Hcl (*Crx) 5 Mg Tab Ir PO 5 mg Q4H PRN Administration Pain Rated 4-6 Oxycodone HCl 10 mg 08/23/24 17:21 08/24/24 17:43 Oxycodone Hcl (*Crx) 5 Mg Tab Ir PO 10 mg Q4H PRN Administration Pain Rated 7-10 Vitamin D 2,000 units 08/22/24 09:00 08/26/24 09:01 Cholecalciferol 1,000 Units Tablet PO 2,000 units DAILY JUNI Administration Radiology Results: ITS Impressions Abdomen/Pelvis CT 08/21/24 21:30 IMPRESSION: Findings consistent with a pancolitis, as detailed above. Fatty infiltration of an enlarged liver. Left basilar atelectasis. Chest X-Ray 08/25/24 08:01 Impression: Probable bibasilar scarring or atelectasis, less likely pneumonia. Venous Doppler Study 08/26/24 14:45 IMPRESSION: Acute venous thrombosis involving the left cephalic vein. Labs Labs: Laboratory Results - last 24 hr 08/26/24 05:51 WBC 28.2 H RBC 4.14 L Hgb 12.2 Hct 34.6 L MCV 83.6 MCH 29.5 MCHC 35.3 RDW 14.2 Plt Count 284 MPV 9.1 Immature Gran % (Auto) 3.0 H Neut % (Auto) 77.8 H Lymph % (Auto) 12.5 L [place] % (Auto) 5.4 Eos % (Auto) 0.8 Baso % (Auto) 0.5 Lymph # (Auto) 3.53 H [place] # (Auto) 1.5 H Eos # (Auto) 0.2 Baso # (Auto) 0.1 Abs Immat Gran (auto) 0.85 H Absolute Neuts (auto) 21.9 H Absolute Nucleated RBC 0.040 H Nucleated RBC % 0.1 Sodium 134 L Potassium 3.6 Chloride 97 L Carbon Dioxide 30 Anion Gap 7 BUN 4 L Creatinine 0.50 L Estim Creat Clear Calc 150 Estimated GFR > 60 Glucose 105 Lactic Acid 0.8 Calcium 8.3 L Magnesium 2.2 Total Bilirubin 0.4 AST 28 ALT 23 Alkaline Phosphatase 89 Total Protein 7.0 Albumin 3.4 L Quality VTE Prophylaxis VTE prophylaxis: mechanical ordered (SCDs)
[2024-08-26 21:43] VITALS: BP 116/64; PULSE 114; RESP 13; TEMP 36.1; O2SAT 98
[2024-08-27] MEDS: DICYCLOMINE HCL 10 MG CAPSULE PO (05:10)
[2024-08-27] MEDS: oxyCODONE HCL (*CRX) 5 MG TAB IR 10 MG PO (05:10)
[2024-08-27 06:00] VITALS: BP 124/84; PULSE 95; RESP 13; TEMP 36.1; O2SAT 96
[2024-08-27 06:05] LABS: Basophils Absolute Auto 0.1 K/mm3 (0.0-0.1); Basophils Percent Auto 0.4 % (0.2-1.2); Eosinophils Absolute Auto 0.3 K/mm3 (0-0.3); Eosinophils Percent Auto 1.4 % (0-4.4); Hematocrit 34.7 % (37.0-47.0); Hemoglobin 11.7 g/dL (12.0-15.0); Immature Granulocyte Absolute 0.77 K/mm3 (0.00-0.031); Immature Granulocyte Percent A 3.6 % (0-0.5); Lymphocytes Absolute Auto 2.86 K/mm3 (0.9-3.2); Lymphocytes Percent Auto 13.2 % (18.3-44.2); Mean Corpuscular HGB Conc 33.7 g/dl (32-36); Mean Corpuscular Hemoglobin 28.5 pg (26-34); Mean Corpuscular Volume 84.6 fl (80-100); Mean Platelet Volume 9.2 fl (7.4-10.4); Monocytes Absolute Auto 1.2 K/mm3 (0.1-0.6); Monocytes Percent Auto 5.4 % (2.6-8.5); Neutrophils Absolute Auto 16.5 K/mm3 (1.3-6.7); Platelet Count Result 299 k/mm3 (150-375); Red Cell Distribution Width 14.3 % (11.5-14.5); White Blood Count 21.7 K/mm3 (4.5-10.0)
[2024-08-27 06:07] LABS: Alanine Aminotransferase 35 U/L (6-35); Albumin Level 3.5 g/dL (3.5-5.1); Alkaline Phosphatase 107 U/L (38-126); Anion Gap 6 mmol/L (4-12); Aspartate Amino Transferase 44 U/L (14-36); Bilirubin,Total 0.4 mg/dL (0.2-1.3); Blood Urea Nitrogen 7 mg/dL (7-17); Calcium 8.5 mg/dL (8.4-10.2); Carbon Dioxide 27 mmol/L (22-30); Chloride 101 mmol/L (98-107); Estimated CRCL calculation 128 ml/min; Estimated Glomerular Filt Rate > 60; Glucose 106 mg/dL (65-110); Magnesium 2.2 mg/dL (1.6-2.3); Potassium 3.9 mmol/L (3.4-5.0); Sodium 134 mmol/L (137-145)
[2024-08-27 06:08] LABS: Lactic Acid Reflex 0.7 mmol/L (0.7-2.0)
[2024-08-27] MEDS: ENOXAPARIN 40 MG/0.4 ML SYRINGE SUB-Q (09:03)
[2024-08-27] MEDS: CHOLECALCIFEROL 1,000 UNITS TABLET 2000 UNITS PO (09:03)
--- NOTE | 2024-08-27 11:30 | PM.DS ---
DS: Admitting Diagnosis Discharge Date 08/27/24 Admitting Diagnosis Bloody diarrhea for 2 days DS: Discharge Diagnosis Discharge Diagnosis (1) Shiga toxin-producing Escherichia coli (E. coli) (STEC) O157: Code(s): A49.8 - Other bacterial infections of unspecified site Status: Acute (2) Diarrhea: Qualifiers: Diarrhea type: presumed infectious Qualified Code(s): R19.7 - Diarrhea, unspecified Code(s): R19.7 - Diarrhea, unspecified Status: Acute (3) Pancolitis: Code(s): K51.00 - Ulcerative (chronic) pancolitis without complications Status: Acute DS: Summary Hospital Course Hospital Course: 24-year-old female with past medical history of obesity, Rios, anxiety, depression and gastroparesis who presented to the ER with 2 days of abdominal pain and bloody stools. She reports that she has had 3 days of abdominal pain and diarrhea. She initially thought her symptoms were due to her gastroparesis. Her usual gastroparesis symptoms usually involve crampy abdominal pain, nausea followed by looser her mushy stools. She was diagnosed with gastroparesis in 2019 when she had an EGD that demonstrated retained gastric contents when she had been fasting for close to 24 hours. She reports that she has never had a colonoscopy. She is followed at [facility] by Gastroenterology for her RIOS and gastroparesis. She reported that her symptoms were accompanied by generalized body aches. She has been afebrile. She went from having mushy loose stools with crampy abdominal pain is moderate to severe in intensity and then transition to having frankly watery/mucousy stools. She reports that she was so weak that her fiance had to help her out of bed and she was having associated lightheaded symptoms. She was having some nausea and did have a couple of episodes of emesis. She denies any hematemesis or coffee-ground emesis. She went to [facility] ER was told she likely had a viral illness without having any evaluation. When she was [place] to leave sloughed ER she did notice some blood in her stool so she left that ER and decided to come to our facility. She denies any bowel incontinence. At our facility labs demonstrated mild leukocytosis, lactic acidosis, chronic stable transaminitis and a CT scan was performed which demonstrated amin colitis. The patient does note that she did the intake for patient had chestnut about 4 weeks ago that was found later to have C diff colitis. She denies any recent antibiotic exposures, travel, undercooked meat or contaminated water exposure. Patient was able to produce a stool specimen that was tested for C diff and was found to be negative. Patient was initially started on antibiotics however stool culture positive for E coli shiga toxin thus antibiotics was discontinued. Patient later complained of left upper arm redness and pain and US doppler showed cephalic vein thrombosis. No anticoagulation required as it is a superficial vein thrombosis. Patient however advised to watch out for worsening symptoms and follow up with PCP closely. Patient now tolerating diet, abd pain improving, and she stated she will follow up with her PCP and GI provider from [facility]. Assessment and Plan (1) Pancolitis: Code(s): K51.00 - Ulcerative (chronic) pancolitis without complications Status: Acute (2) Hematochezia: Code(s): K92.1 - Melena Status: Acute (3) Acute hyponatremia: Code(s): E87.1 - Hypo-osmolality and hyponatremia Status: Acute Plan Pancolitis with abd pain Dysentery Patient presented with bloody diarrhea and abd pain NO bowel movement since yesterday and abd pain has improved CT AP showed pancolitis Stool culture positive for Shiga toxins Abx discontinued C diff negative, Hb, cr and Plts wnl Patient is much better today and tolerating diet and abd pain markedly improved GI eval noted, recommends colonoscopy and if patient is unable to do it inpatient then she will continue f/u with her primary GI patient contineud to be stable and labs wnl F/u with GI as instructed however patient noted she will follow up with her primary GI at [facility] Leukocytosis likely from Cephalic vein thrombosis WBC 28.2 down to 21 this morning monitor closely Left cephalic vein thrombosis complained of left arm pain and erythema Vvenous doppler positive for left cephalic vein thrombosis no anticoagulation needed Microcytic anemia HB 11.3 and MCV 84 Ferritin 37, Isat 8 S/p IV iron 1000/1000mg monitor H and H Hyponatremia resolved monitor F/u with PCP in 3- 5 days. F/u with primary GI. Time Spent with Patient Time attestation: Total time spent providing and/or coordinating discharge services: DS: Data Data Completed and Pending Labs on day of discharge: Labs from last 24 hours 08/27/24 05:45 WBC 21.7 H RBC 4.10 L Hgb 11.7 L Hct 34.7 L MCV 84.6 MCH 28.5 MCHC 33.7 RDW 14.3 Plt Count 299 MPV 9.2 Immature Gran % (Auto) 3.6 H Neut % (Auto) 76.0 H Lymph % (Auto) 13.2 L [place] % (Auto) 5.4 Eos % (Auto) 1.4 Baso % (Auto) 0.4 Lymph # (Auto) 2.86 [place] # (Auto) 1.2 H Eos # (Auto) 0.3 Baso # (Auto) 0.1 Abs Immat Gran (auto) 0.77 H Absolute Neuts (auto) 16.5 H Absolute Nucleated RBC 0.000 Nucleated RBC % 0.0 Sodium 134 L Potassium 3.9 Chloride 101 Carbon Dioxide 27 Anion Gap 6 BUN 7 Creatinine 0.60 L Estim Creat Clear Calc 128 Estimated GFR > 60 Glucose 106 Lactic Acid 0.7 Calcium 8.5 Magnesium 2.2 Total Bilirubin 0.4 AST 44 H ALT 35 Alkaline Phosphatase 107 Total Protein 7.0 Albumin 3.5 Discharge Plan Discharge Attending physician on discharge: Olayinka Rojo Discharging Clinician: Olayinka Rojo Anticipated Discharge Date/Time: 08/27/24 11:26 Patient Disposition: Home, Self-Care Activity: as tolerated Diet: as tolerated Patient Instructions: Antibiotic Form, Dicyclomine (By mouth), Pain Management (DC) Stand Alone Forms: General Discharge Information, Work/School Release IP Follow-up/Referrals: Adwoa Nguyễn DO [Physician] - (F/u with PCP in 3-5 days ) Saul Garcia MD [Physician] - (F/u with GI as instructed ) Discharge Medications: New dicyclomine 10 mg Capsule 10 mg PO QID PRN (Reason: Abdominal Cramping) 5 Days Qty: 15 0RF oxycodone 5 mg Tablet 5 mg PO Q4H PRN (Reason: Pain Rated 4-6) 5 Days Qty: 12 0RF Continued cholecalciferol (vitamin D3) [Vitamin D3] 50 mcg (2,000 unit) Capsule 50 mcg PO DAILY vitamin K2 45 mcg Capsule 45 mcg PO DAILY Date of admission: 08/22/24 11:19 Primary Care Provider: UNKNOWN,DOCTOR Admitting Provider: Priscila Davenport Attending physician on admission: Priscila Davenport Condition: Stable
[2024-08-29 19:32] LABS: Calprotectin, Stool 406 mcg/g
== END 2024-08-27 12:20 | disposition home or self-care (01) | DRG 372 ==
LOC: ANHED 22:29 → ANH3MEDSUR 22:51
PROVIDERS: Emergency Medicine; Nurse Practitioner Family; Admitting Provider Internal Medicine; Emergency Provider Physician Assistant; Visit Provider Internal Medicine
DX: A04.4 Other intestinal Escherichia coli infections (principal); D62 Acute posthemorrhagic anemia; E87.1 Hypo-osmolality and hyponatremia; K92.1 Melena; R65.10 Systemic inflammatory response syndrome (SIRS) of non-infectious origin without acute organ dysfunction; I82.612 Acute embolism and thrombosis of superficial veins of left upper extremity; B96.21 Shiga toxin-producing Escherichia coli [E. coli] [STEC] O157 as the cause of diseases classified elsewhere; K31.84 Gastroparesis; K75.81 Nonalcoholic steatohepatitis (NASH); F41.9 Anxiety disorder, unspecified; F32.A Depression, unspecified
CPT/HCPCS: 36415; 71045; 74177; 80053; 81003; 81025; 82728; 83540; 83550; 83605; 83690; 83735; 83993; 85014; 85018; 85025; 85027; 87045; 87427; 87449; 87493; 89055; 93971; 96361; 96365; 96367; 96375; 99285; A9270; G0378; J0696; J1650; J1756; J1836; J2270; J7030; J7050; Q9967